=== PATIENT | male | born 1975 | race Caucasian/White ===

== ENCOUNTER 2016-10-26 22:28 | Observation (INO) ==
[2016-10-27 00:18] LABS: Basophils # 0.1 K/mcL (0.0-0.2); Basophils % 0.6 %; Eosinophils # 0.1 K/mcL (0.0-0.6); Eosinophils % 0.9 %; Hematocrit 42.6 % (37.5-50.1); Hemoglobin 14.9 g/dL (12.9-16.9); Immature Granulocytes % 0.4 % (0-4); Lymphocytes % 38.3 %; Mean Corpuscular Hemoglobin 29.6 pg (28.0-33.3); Mean Corpuscular Volume 84.7 fL (83.0-100.0); Monocytes # 0.5 K/mcL (0.0-1.3); Monocytes % 5.8 %; Neutrophils # 4.2 K/mcL (1.6-8.9); Platelet Count 289 K/mcL (140-400); Red Blood Count 5.03 M/mcL (4.19-5.50); Red Cell Distribution Width 13.5 % (11.5-14.5)
[2016-10-27 00:22] LABS: Bilirubin,Urine Negative (Negative); Blood,Urine Negative (Negative); Clarity,Urine Clear (Clear); Color,Urine Yellow (Yellow); Glucose,Urine (UA) Normal (Normal); Ketones,Urine Negative (Negative); Leukocyte Esterase,Urine Negative (Negative); Nitrite,Urine Negative (Negative); Protein,Urine Negative (Neg-Trace); Specific Gravity,Urine 1.007 (1.010-1.025); Urobilinogen,Urine Normal (Normal)
[2016-10-27 00:26] LABS: BUN/Creatinine Ratio 7 (6-26); Blood Urea Nitrogen 7 mg/dL (8-26); Calcium 8.9 mg/dL (8.6-10.8); Carbon Dioxide 23 mEq/L (19-29); Chloride 107 mEq/L (98-109); Glucose 98 mg/dL (70-99); Osmolality,Calculated 294 (280-300); Potassium 3.8 mEq/L (3.5-4.5); Sodium 143 mEq/L (136-145); eGFR For African Americans > 60 (> 60); eGFR For Non-African Americans > 60 (> 60)
[2016-10-27 00:46] LABS: Acetaminophen < 1.0 mcg/mL (10-30); Ethanol 306 mg/dL (0-10); Salicylate < 5.0 mg/dL (15-30)
[2016-10-27 00:57] LABS: Amphetamine Screen,Urine Negative ng/mL (Cutoff=1000); Barbiturate Screen,Urine Negative ng/mL (Cutoff=200); Benzodiazepines Screen,Urine Negative ng/mL (Cutoff=200); Cannabinoid Screen,Urine Negative ng/mL (Cutoff = 50); Cocaine Screen,Urine Negative ng/mL (Cutoff= 300); Opiate Screen,Urine Negative ng/mL (Cutoff=300); Phencyclidine Screen,Urine Negative ng/mL (Cutoff=25)
--- NOTE | 2016-10-27 03:23 | Emergency Department Note ---
Disposition Clinical Impression: Anxiety, Bipolar 1 disorder Alcohol intoxication Qualifiers: Qualified Code(s): F10.129 - Disposition: Admitted As Inpatient Condition: Fair Time of Disposition: : Psych HPI - General Chief Complaint: ED Psychiatric Symptoms Stated Complaint: bipolar, ETOH, pain in his soul Time Seen by Provider: 10/27/16 00:40 Nursing Notes Reviewed: Yes Vital Signs Reviewed: Yes - History of Present Illness HPI Narrative: Mr. Banks, 41-year-old male, presents from home via EMS for chief complaint of anxiety. Patient called the squad on himself as he was having panic attacks. Is a history of bipolar disorder and currently takes Klonopin 0.5 mg on an unknown schedule. He currently follows with a psychologist [place] and is able to get close follow-up appointments. Patient states he did have alcohol today was his first time he has had a drink in 3 months. He is concerned because he knows that his current medication regimen is not controlling his anxiety does not want to go back to alcohol abuse to supplement his medications. PMH: Bipolar ROS: Positive: Anxiety Negative: Suicidality, homicidality, depression, fever, chills, chest pains, palpitations, abdominal pains, difficulty with bowels or bladder, confusion, dizziness. - Related Data Home Medications Medication Instructions Recorded Confirmed Divalproex Sodium [Depakote] 250 mg PO 10/27/16 Lisinopril-HCTZ 10-12.5 [Prinzide DAILY 10/27/16 10-12.5] Simvastatin [Zocor] 80 mg PO DAILY 10/27/16 10/27/16 clonazePAM [Klonopin] 0.5 mg PO DAILY 10/27/16 10/27/16 Allergies Allergy/AdvReac Type Severity Reaction Status Date / Time acetaminophen [From Percocet] AdvReac Insomnia Verified 10/11/16 12:14 haloperidol [From Haldol] AdvReac Swelling Verified 10/11/16 12:14 of Lip/Tongue/Throat lurasidone [From Latuda] AdvReac Swelling Verified 10/11/16 12:14 of Lip/Tongue/Throat Oxycodone [From Percocet] AdvReac Insomnia Verified 10/11/16 12:14 ziprasidone [From Geodon] AdvReac Swelling Verified 10/11/16 12:14 of Lip/Tongue/Throat All systems ED: reviewed and negative except as stated. Past Medical History - Past Medical History Medical history: Reports: diabetes, hyperlipidemia, hypertension, other Surgical history: Reports: orthopedic, other (left shoulder surgery Dr. Brooks) Psychiatric history: Reports: anxiety, bipolar, depression, panic disorder, PTSD , other - Social History Smoking Status: Never smoker Smokeless Tobacco Status: Yes (chewing tobacco) Alcohol use: Reports: none Drug use: Reports: none Physical Exam Vital Signs Reviewed General: Patient is alert, oriented, and in no acute distress. HEENT: No facial asymmetry. Head is normocephalic and atraumatic. PERRLA, EOMI. trachea midline. Patient has a difficult to his mouth. Cardiovascular: Heart regular rate and rhythm without clicks, rubs, gallops, or murmurs. Respiratory: Symmetric chest rise with good respiratory effort. Bilateral breath sounds are clear without wheezing, crackles, or rhonchi. Abdomen: Bowel sounds present normoactive x-4 quadrants. Abdomen is soft, nondistended, and nontender. No organomegaly noted. Psych: Patient's affect is appropriate for situation. His speech is not rushed his thoughts are coherent and not disjointed. Course Course Narrative: Patient is not safe to go home given his history of bipolar for which he could be entering a manic phase as well as his currently poorly controlled anxiety which was severe enough to cause him to call the squad himself coupled with his inability to get appropriate follow-up for continued evaluation by a psychologist. He requires evaluation by [facility]; they will not see him until his blood alcohol level becomes below the legal limit. Given that his current blood alcohol level is 306, this will likely take 9-15 hours for him to metabolize down to the legal limit. 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 I did see the patient coming to the emergency department wearing a cowboy hat and carrying a guitar. Spoke with the patient agrees to admission. Spoke with Dr. Casas, the admitting hospitalist, who agrees to accept the patient to observation with one a evaluation once he is at the legal alcohol. Vital Signs Temperature 98.4 F 10/27/16 00:15 Pulse Rate 89 10/27/16 00:15 Respiratory Rate 16 10/27/16 00:15 Blood Pressure 135/71 10/27/16 00:15 O2 Sat by Pulse Oximetry 99 10/27/16 00:15 Temperature 97.8 F 10/27/16 05:08 Pulse Rate 112 10/27/16 05:08 Respiratory Rate 15 10/27/16 05:08 Blood Pressure 110/96 10/27/16 05:08 O2 Sat by Pulse Oximetry 94 10/27/16 04:45 Oxygen Delivery Oxygen Delivery Room Air Psych - Lab Data Result diagrams: 10/26/16 22:52 10/26/16 22:52 Lab Results 10/26/16 10/26/16 10/26/16 Range/Units 22:52 22:52 23:40 WBC 7.8 (4.3-11.1) K/mcL RBC 5.03 (4.19-5.50) M/mcL Hgb 14.9 (12.9-16.9) g/dL Hct 42.6 (37.5-50.1) % MCV 84.7 (83.0-100.0) fL MCH 29.6 (28.0-33.3) pg MCHC 35.0 (31.6-35.5) g/dL RDW 13.5 (11.5-14.5) % Plt Count 289 (140-400) K/mcL MPV 10.0 (9.4-12.4) fL Immature Gran % 0.4 (0-4) % Seg Neutrophils % 54.0 % Lymphocytes % 38.3 % Monocytes % 5.8 % Eosinophils % 0.9 % Basophils % 0.6 % Neutrophils # 4.2 (1.6-8.9) K/mcL Lymphocytes # 3.0 (0.6-4.6) K/mcL Monocytes # 0.5 (0.0-1.3) K/mcL Eosinophils # 0.1 (0.0-0.6) K/mcL Basophils # 0.1 (0.0-0.2) K/mcL Sodium 143 (136-145) mEq/L Potassium 3.8 (3.5-4.5) mEq/L Chloride 107 (98-109) mEq/L Carbon Dioxide 23 (19-29) mEq/L BUN 7 L (8-26) mg/dL Creatinine 1.00 (0.72-1.25) mg/dL Est GFR ( Amer) > 60 (> 60) Est GFR (Non-Af Amer) > 60 (> 60) BUN/Creatinine Ratio 7 (6-26) Glucose 98 (70-99) mg/dL Calculated Osmolality 294 (280-300) Calcium 8.9 (8.6-10.8) mg/dL Urine Color Yellow (Yellow) Urine Clarity Clear (Clear) Urine pH 6.0 (5.0-8.0) pH Units Ur Specific [place] 1.007 L (1.010-1.025) Urine Protein Negative (Neg-Trace) mg/dL Urine Glucose (UA) Normal (Normal) mg/dL Urine Ketones Negative (Negative) mg/dL Urine Blood Negative (Negative) Urine Nitrite Negative (Negative) Urine Bilirubin Negative (Negative) Urine Urobilinogen Normal (Normal) mg/dL Ur Leukocyte Esterase Negative (Negative) Salicylates < 5.0 L (15-30) mg/dL Urine Opiates Screen (Ckbzyc=860) ng/mL Acetaminophen < 1.0 L (10-30) mcg/mL Ur Barbiturates Screen (Baqgrj=159) ng/mL Ur Phencyclidine Scrn (Cutoff=25) ng/mL Ur Amphetamines Screen (Ygkeqi=5396) ng/mL U Benzodiazepines Scrn (Qoulqi=276) ng/mL Urine Cocaine Screen (Cutoff= 300) ng/mL U Marijuana (THC) Screen (Cutoff = 50) ng/mL Ethyl Alcohol 306 H (0-10) mg/dL 10/26/16 Range/Units 23:40 WBC (4.3-11.1) K/mcL RBC (4.19-5.50) M/mcL Hgb (12.9-16.9) g/dL Hct (37.5-50.1) % MCV (83.0-100.0) fL MCH (28.0-33.3) pg MCHC (31.6-35.5) g/dL RDW (11.5-14.5) % Plt Count (140-400) K/mcL MPV (9.4-12.4) fL Immature Gran % (0-4) % Seg Neutrophils % % Lymphocytes % % Monocytes % % Eosinophils % % Basophils % % Neutrophils # (1.6-8.9) K/mcL Lymphocytes # (0.6-4.6) K/mcL Monocytes # (0.0-1.3) K/mcL Eosinophils # (0.0-0.6) K/mcL Basophils # (0.0-0.2) K/mcL Sodium (136-145) mEq/L Potassium (3.5-4.5) mEq/L Chloride (98-109) mEq/L Carbon Dioxide (19-29) mEq/L BUN (8-26) mg/dL Creatinine (0.72-1.25) mg/dL Est GFR ( Amer) (> 60) Est GFR (Non-Af Amer) (> 60) BUN/Creatinine Ratio (6-26) Glucose (70-99) mg/dL Calculated Osmolality (280-300) Calcium (8.6-10.8) mg/dL Urine Color (Yellow) Urine Clarity (Clear) Urine pH (5.0-8.0) pH Units Ur Specific [place] (1.010-1.025) Urine Protein (Neg-Trace) mg/dL Urine Glucose (UA) (Normal) mg/dL Urine Ketones (Negative) mg/dL Urine Blood (Negative) Urine Nitrite (Negative) Urine Bilirubin (Negative) Urine Urobilinogen (Normal) mg/dL Ur Leukocyte Esterase (Negative) Salicylates (15-30) mg/dL Urine Opiates Screen Negative (Utaeue=407) ng/mL Acetaminophen (10-30) mcg/mL Ur Barbiturates Screen Negative (Ugtysn=607) ng/mL Ur Phencyclidine Scrn Negative (Cutoff=25) ng/mL Ur Amphetamines Screen Negative (Vqtipc=0854) ng/mL U Benzodiazepines Scrn Negative (Dygpes=257) ng/mL Urine Cocaine Screen Negative (Cutoff= 300) ng/mL U Marijuana (THC) Screen Negative (Cutoff = 50) ng/mL Ethyl Alcohol (0-10) mg/dL Psychiatric Medical Clearance - Medical Clearance Checklist Medical History: No Social History [place] defined Current Vitals: Last Vital Signs Temp 97.8 F 10/27/16 05:08 Pulse 112 10/27/16 05:08 Resp 15 10/27/16 05:08 BP 110/96 10/27/16 05:08 Pulse Ox 94 10/27/16 04:45 Psychiatric Lab Panel: Drug Levels and Toxicity 10/26/16 10/26/16 22:52 23:40 Urine Opiates Screen Negative Acetaminophen < 1.0 L Ur Barbiturates Screen Negative Ur Phencyclidine Scrn Negative Ur Amphetamines Screen Negative U Benzodiazepines Scrn Negative Urine Cocaine Screen Negative U Marijuana (THC) Screen Negative Ethyl Alcohol 306 H Abnormal Labs: Abnormal lab results BUN 7 mg/dL (8-26) L 10/26/16 22:52 Ur Specific [place] 1.007 (1.010-1.025) L 10/26/16 23:40 Salicylates < 5.0 mg/dL (15-30) L 10/26/16 22:52 Acetaminophen < 1.0 mcg/mL (10-30) L 10/26/16 22:52 Ethyl Alcohol 306 mg/dL (0-10) H 10/26/16 22:52 Attestation Statement - Attestation Attestation: I, Jaquan Neff MD, personally evaluated this patient and discussed their management with the resident physician. I reviewed the resident's note and agree with the documented findings, medical decision making, and plan of care. 41-year-old male presents to the emergency department with a complaint of anxiety and panic attacks. He has a history of bipolar disorder. He also has been drinking alcohol tonight. No suicidal or homicidal ideation. On examination patient is a well-developed well-nourished male in no acute distress. He is alert and oriented 3. He is cooperative. No cyanosis or diaphoresis. Breath sounds are clear and equal bilaterally. Heart regular rate and rhythm. Labs reviewed and unremarkable other than alcohol level of 306. Although the patient denies suicidal ideation he is very intoxicated and is having psychological issues. He does need psychiatric evaluation but cannot be evaluated until sober. Therefore the hospitalist, Dr. Casas, was consulted and accepted admission of the patient.
--- NOTE | 2016-10-27 04:19 | Internal Med History&Physical ---
Date of Encounter: 10/27/16 Time of Encounter: 04:17 Assessment and Plan (1) Alcohol intoxication Current visit: Yes Status: Acute Started drinking excessively after he was sober for 3 month. BAL 300. Will wait till < 80 and then transfer to psych. Qualifiers: Qualified Code(s): F10.129 - Alcohol abuse with intoxication, unspecified (2) Panic attack Current visit: Yes Status: Acute clonazepam PRN. He denies suicidal or homicidal ideation Internal Medicine - H&P: HPI Chief complaint: panic attack History of present illness: Mr. Banks is a 41 year old male with history of anxiety and bipolar disorder, present to the ED after a panic attack. Patient has been sober from alcohol for 3.5 months. Started drinking today. He had a panic attack. denied any chest pain , SOB. Denies any drug abuse or other coingestion. No suicidal or homicidal ideations. No hematemesis, melena or hematochezia Past Med Surg Social Fam HX - Past Medical History Medical history: diabetes, hyperlipidemia, hypertension, other Psychiatric history: anxiety, bipolar, depression, panic disorder, PTSD, other - Past Surgical History Surgical History: orthopedic, other (left shoulder surgery Dr. Brooks) - Social History Smoking Status: Never smoker Smokeless Tobacco Status: Yes (chewing tobacco) Alcohol use: none Drug use: none Internal Medicine - H&P: Meds Divalproex Sodium [Depakote] 250 mg PO 10/27/16 [History] Lisinopril-HCTZ 10-12.5 [Prinzide 10-12.5] DAILY 10/27/16 [History] Simvastatin [Zocor] 80 mg PO DAILY 10/27/16 [History] clonazePAM [Klonopin] 0.5 mg PO DAILY 10/27/16 [History] Allergies acetaminophen [From Percocet] Adverse Reaction (Verified 10/11/16 12:14) Insomnia haloperidol [From Haldol] Adverse Reaction (Verified 10/11/16 12:14) Swelling of Lip/Tongue/Throat lurasidone [From Latuda] Adverse Reaction (Verified 10/11/16 12:14) Swelling of Lip/Tongue/Throat Oxycodone [From Percocet] Adverse Reaction (Verified 10/11/16 12:14) Insomnia ziprasidone [From Geodon] Adverse Reaction (Verified 10/11/16 12:14) Swelling of Lip/Tongue/Throat All Systems PM: A 10-system review of systems was performed and is negative for pertinent findings except as documented above in the HPI. Review of systems: 10 point ROS is nehgative except for HPI - Constitutional Vitals: Temp Pulse Resp BP Pulse Ox 98.4 F 89 0 0/0 99 10/27/16 00:15 10/27/16 03:50 10/27/16 04:14 10/27/16 04:14 10/27/16 03:50 Exam: Gen.: patient is alert oriented times 3 not in distress. Cardiac: normal S1 S2 no additional sounds or murmurs chest: fair air entry. no active wheezing. No crackles or bronchial breathing. abdomen: soft nontender nondistended normal bowel sounds neuro: no focal deficit Internal Med - H&P Results - Labs CBC & Chem 7: 10/26/16 22:52 10/26/16 22:52
[2016-10-27] MEDS ORDERED: Famotidine 20 MG TABLET PO SCH (09:00)
[2016-10-27] MEDS ORDERED: 0.9 % Sodium Chloride 1,000 ML IVC SCH (09:30)
[2016-10-27 11:51] VITALS: BP 126/76
--- NOTE | 2016-10-27 14:56 | Consult Note ---
Date of Encounter: 10/27/16 Time of Encounter: 14:20 Assessment & Recommendation (1) Bipolar 1 disorder Current visit: Yes Status: Acute Assessment & Recommendation: Patient will be admitted to psychiatry for further evaluation and treatment after medical stabilization. Thank you for consultation. History of Present Illness Patient: new to practice Requesting Physician: Skylar Soto CNP Reason for consult: Alcohol intoxication and suicidal ideation History of present illness: Mr. Banks is a 41 year old male admitted to the hospital for treatment of alcohol intoxication and psychiatry was consulted regarding suicidal ideation and noncompliance with medication. On admission patient level was severe was 306. Patient had long history of psychiatric treatment for bipolar disorder and PTSD and alcohol dependence. He told me that he was hospitalized at [facility] ago. He is taking medication and follow-up up by an outpatient psychiatrist in [place]. CC: Skylar Soto CNP Past Med Surg Social Fam HX - Past Medical History Medical history: diabetes, hyperlipidemia, hypertension, other - Past Surgical History Surgical History: orthopedic, other (left shoulder surgery Dr. Brooks) - Social History Smoking Status: Never smoker Smokeless Tobacco Status: Yes (chewing tobacco) Alcohol use: none Drug use: none Medications & Allergies Betamethasone Dipropionate 1 appl TP BID PRN 10/27/16 [History] Betamethasone Valerate 1 appl TP BID PRN 10/27/16 [History] Calcipotriene 1 appl TP BID PRN 10/27/16 [History] Ciclopirox [Loprox] 1 appl TP 3XW PRN 10/27/16 [History] Divalproex (24 HR) [Depakote ER (24 HR)] 2,000 mg PO HS 10/27/16 [History] Gabapentin [Gralise] 300 mg PO TID 10/27/16 [History] Lisinopril-HCTZ 10-12.5 [Prinzide 10-12.5] 1 tab PO DAILY 10/27/16 [History] Simvastatin [Zocor] 20 mg PO HS 10/27/16 [History] clonazePAM [Klonopin] 0.5 mg PO BID 10/27/16 [History] Allergies acetaminophen [From Percocet] Adverse Reaction (Verified 10/11/16 12:14) Insomnia haloperidol [From Haldol] Adverse Reaction (Verified 10/11/16 12:14) Swelling of Lip/Tongue/Throat lurasidone [From Latuda] Adverse Reaction (Verified 10/11/16 12:14) Swelling of Lip/Tongue/Throat Oxycodone [From Percocet] Adverse Reaction (Verified 10/11/16 12:14) Insomnia ziprasidone [From Geodon] Adverse Reaction (Verified 10/11/16 12:14) Swelling of Lip/Tongue/Throat Mental Status Exam Patient orientation: Yes Person, Yes Time, Yes Place Level of alertness: Alert, Sedated Patient appearance: Appropriate, Unkempt, Disheveled Behavior: calm, cooperative, anxious, guarded Psychomotor activity: Slowed Eye contact: Fleeting Contact Mood description: Anxious, Labile Affect description: congruent with mood, labile, dysphoric Speech pattern: Normal rate, Normal rhythm, Normal tone Speech volume: Normal Thought process: Linear, Goal Oriented Thought content: Yes Suicidal ideation, No Homicidal ideation, No Overt delusions Perceptual disturbances: No Auditory hallucinations, No Visual hallucinations Attention span: Capable of Focused Attention Memory description: Grossly Intact Patient reliability: Reliable Historian Intelligence estimate: Average Judgment: Limited Insight: Partial Results - Vital Signs Vital signs: Temp Pulse Resp BP Pulse Ox 97.7 F 106 16 126/76 96 10/27/16 11:49 10/27/16 11:49 10/27/16 11:49 10/27/16 11:49 10/27/16 11:49 - Labs Labs: Laboratory Last Values WBC 7.8 K/mcL (4.3-11.1) 10/26/16 22:52 RBC 5.03 M/mcL (4.19-5.50) 10/26/16 22:52 Hgb 14.9 g/dL (12.9-16.9) 10/26/16 22:52 Hct 42.6 % (37.5-50.1) 10/26/16 22:52 MCV 84.7 fL (83.0-100.0) 10/26/16 22:52 MCH 29.6 pg (28.0-33.3) 10/26/16 22:52 MCHC 35.0 g/dL (31.6-35.5) 10/26/16 22:52 RDW 13.5 % (11.5-14.5) 10/26/16 22:52 Plt Count 289 K/mcL (140-400) 10/26/16 22:52 MPV 10.0 fL (9.4-12.4) 10/26/16 22:52 Immature Gran % 0.4 % (0-4) 10/26/16 22:52 Seg Neutrophils % 54.0 % 10/26/16 22:52 Lymphocytes % 38.3 % 10/26/16 22:52 Monocytes % 5.8 % 10/26/16 22:52 Eosinophils % 0.9 % 10/26/16 22:52 Basophils % 0.6 % 10/26/16 22:52 Neutrophils # 4.2 K/mcL (1.6-8.9) 10/26/16 22:52 Lymphocytes # 3.0 K/mcL (0.6-4.6) 10/26/16 22:52 Monocytes # 0.5 K/mcL (0.0-1.3) 10/26/16 22:52 Eosinophils # 0.1 K/mcL (0.0-0.6) 10/26/16 22:52 Basophils # 0.1 K/mcL (0.0-0.2) 10/26/16 22:52 Sodium 143 mEq/L (136-145) 10/26/16 22:52 Potassium 3.8 mEq/L (3.5-4.5) 10/26/16 22:52 Chloride 107 mEq/L (98-109) 10/26/16 22:52 Carbon Dioxide 23 mEq/L (19-29) 10/26/16 22:52 BUN 7 mg/dL (8-26) L 10/26/16 22:52 Creatinine 1.00 mg/dL (0.72-1.25) 10/26/16 22:52 Est GFR ( Amer) > 60 (> 60) 10/26/16 22:52 Est GFR (Non-Af Amer) > 60 (> 60) 10/26/16 22:52 BUN/Creatinine Ratio 7 (6-26) 10/26/16 22:52 Glucose 98 mg/dL (70-99) 10/26/16 22:52 Calculated Osmolality 294 (280-300) 10/26/16 22:52 Calcium 8.9 mg/dL (8.6-10.8) 10/26/16 22:52 Urine Color Yellow (Yellow) 10/26/16 23:40 Urine Clarity Clear (Clear) 10/26/16 23:40 Urine pH 6.0 pH Units (5.0-8.0) 10/26/16 23:40 Ur Specific [place] 1.007 (1.010-1.025) L 10/26/16 23:40 Urine Protein Negative mg/dL (Neg-Trace) 10/26/16 23:40 Urine Glucose (UA) Normal mg/dL (Normal) 10/26/16 23:40 Urine Ketones Negative mg/dL (Negative) 10/26/16 23:40 Urine Blood Negative (Negative) 10/26/16 23:40 Urine Nitrite Negative (Negative) 10/26/16 23:40 Urine Bilirubin Negative (Negative) 10/26/16 23:40 Urine Urobilinogen Normal mg/dL (Normal) 10/26/16 23:40 Ur Leukocyte Esterase Negative (Negative) 10/26/16 23:40 Salicylates < 5.0 mg/dL (15-30) L 10/26/16 22:52 Urine Opiates Screen Negative ng/mL (Xhypbz=974) 10/26/16 23:40 Acetaminophen < 1.0 mcg/mL (10-30) L 10/26/16 22:52 Ur Barbiturates Screen Negative ng/mL (Hbpejt=308) 10/26/16 23:40 Ur Phencyclidine Scrn Negative ng/mL (Cutoff=25) 10/26/16 23:40 Ur Amphetamines Screen Negative ng/mL (Qzwcue=9557) 10/26/16 23:40 U Benzodiazepines Scrn Negative ng/mL (Sedxlz=400) 10/26/16 23:40 Urine Cocaine Screen Negative ng/mL (Cutoff= 300) 10/26/16 23:40 U Marijuana (THC) Screen Negative ng/mL (Cutoff = 50) 10/26/16 23:40 Ethyl Alcohol 306 mg/dL (0-10) H 10/26/16 22:52 Consult Discharge Plan - Plan Referrals: NO,PCP [Primary Care Provider] -
[2016-10-27] MEDS ORDERED: Gabapentin 300 MG CAPSULE PO SCH (15:00)
--- NOTE | 2016-10-27 16:28 | Discharge Summary ---
Date of Encounter: 10/27/16 Time of Encounter: 10:35 - Discharge Diagnosis (1) Anxiety Priority: Primary Status: Chronic Comments: Patient reports long history of panic disorder, bipolar disorder, and PTSD. He said he began having anxiety and panic attack last night came to the emergency room. He says that he had not had any alcohol in about 119 days. Reports insomnia for at least 2 weeks, this could be contributing to his anxiety. Currently he is taking Klonopin and Depakote for bipolar and anxiety. After his emergency room visit he was pink slipped to 1A. Patient denies suicidal or homicidal ideations. Patient is going be admitted to mental health unit for continued evaluation. (2) Bipolar 1 disorder Priority: Secondary Status: Chronic Comments: Plan as above (3) Alcohol intoxication Priority: Secondary Status: Acute Comments: Patient states that he had been drinking for years, states that he had not had anything to drink for approximately 119 days. 2 days ago he began drinking at 4 PM and continued through the next day, yesterday. He reports that he needed to relax and he has been having insomnia for 2 weeks. He said that he did sleep better than he had in weeks. He says that he had a total of 32 beers, multiple shots of whiskey, and 5-7 mixed drinks. Blood alcohol was 306 on arrival, after hydration and overnight, Blood alcohol is 14. Patient is being admitted to mental health unit for continued evaluation. Qualifiers: Complication of substance-induced condition: uncomplicated Qualified Code(s ): F10.120 - Alcohol abuse with intoxication, uncomplicated - Discharge Medications Home Medications: Betamethasone Dipropionate 1 appl TP BID PRN 10/27/16 [History] Betamethasone Valerate 1 appl TP BID PRN 10/27/16 [History] Calcipotriene 1 appl TP BID PRN 10/27/16 [History] Ciclopirox [Loprox] 1 appl TP 3XW PRN 10/27/16 [History] Divalproex (24 HR) [Depakote ER (24 HR)] 2,000 mg PO HS 10/27/16 [History] Gabapentin [Gralise] 300 mg PO TID 10/27/16 [History] Lisinopril-HCTZ 10-12.5 [Prinzide 10-12.5] 1 tab PO DAILY 10/27/16 [History] Simvastatin [Zocor] 20 mg PO HS 10/27/16 [History] clonazePAM [Klonopin] 0.5 mg PO BID 10/27/16 [History] Allergies/Adverse Reactions: Allergies acetaminophen [From Percocet] Adverse Reaction (Verified 10/11/16 12:14) Insomnia haloperidol [From Haldol] Adverse Reaction (Verified 10/11/16 12:14) Swelling of Lip/Tongue/Throat lurasidone [From Latuda] Adverse Reaction (Verified 10/11/16 12:14) Swelling of Lip/Tongue/Throat Oxycodone [From Percocet] Adverse Reaction (Verified 10/11/16 12:14) Insomnia ziprasidone [From Geodon] Adverse Reaction (Verified 10/11/16 12:14) Swelling of Lip/Tongue/Throat Date of admission: 10/27/16 03:49 Primary care physician: PCP NO Consults: 10/27/16 09:29 Consult to Psychiatry [CONS] Stat Consulting Provider: Psychiatry Gladys Reason for Consult: Pt was pink slipped by ED to . Call Completed: No 10/27/16 13:08 Consult to Fountain Worker [CONS] Routine Reason for SW Consult: patient is pink slipped Discharging clinician: Skylar Soto Anticipated date of discharge: 10/27/16 - Patient Status Disposition: Transfer Psychiatric Hosp Condition: Good Functional capacity at discharge: independent ambulation Overall status at discharge: patient is back to baseline - Discharge Instructions Follow Up With: NO,PCP [Primary Care Provider] - Additional Instructions: Patient stable for discharge to . - Diet and Activity Activity: resume usual activities as tolerated Diet: advance to your usual diet Interval History: Mr. Banks is a 41-year-old male with medical history of alcoholism, panic disorder, PTSD, and bipolar disorder. He presented to the emergency department last night with panic attack and anxiety after drinking. He says that he had not had anything to drink for about 119 days. He reported insomnia for the last 2 weeks and says that he needed to relax. He began drinking at 4 PM 2 days ago and slept well that night. He continued into the next day, yesterday. He says he had a total of 32 beers, multiple shots of whiskey, and 5-7 mixed drinks. Blood alcohol level was over 300 on arrival. After IV hydration and observation, blood alcohol level is 14. He did have a sitter during his stay on the unit. He denied suicidal or homicidal ideations. He said he did feel helpless and hopeless, however he said he did not feel as if he would be better off . He denies recent change in appetite. He has had change in sleep pattern. He answers questions appropriately and fully and makes good eye contact. Is alert and interactive. Vital signs have been stable, labs are within normal limits. Patient is appropriate for discharge will be going to for continued evaluation. Hospital course: Mr. Banks is a 41 year old male - Time Spent with Patient Total time spent providing and/or coordinating discharge services: Less than 30 minutes - Constitutional Vitals: Temp Pulse Resp BP Pulse Ox 97.7 F 106 16 126/76 96 10/27/16 11:49 10/27/16 11:49 10/27/16 11:49 10/27/16 11:49 10/27/16 11:49 General appearance: Present: A&O X 3, pleasant, answers questions appropriately - Head Head exam: Present: normal inspection - Eye Eye exam: Present: normal appearance, nystagmus, conjuntiva pink - ENT ENT exam: Present: mucous membranes moist, normal exam, normal external ear exam - Neck Neck exam general surgery: Present: normal inspection. Absent: lymphadenopathy , tenderness - Respiratory Respiratory exam: Present: CTAB. Absent: decreased breath sounds, respiratory distress, rhonchi, wheezes - Cardiovascular Cardiovascular exam: Present: RRR, +S1, +S2. Absent: diastolic murmur, systolic murmur - Extremities Exam Extremities exam: Present: warm, radial pulses palpable and symetrical. Absent : pedal edema, tenderness - Neurological Exam Neurological exam: Present: alert, oriented X3, no focal deficits, strengths equal and symetr throughout. Absent: facial droop, speech deficit - Psychiatric Psychiatric exam: Present: flat affect, normal affect, normal mood. Absent: anxious, depressed, homicidal ideation, suicidal ideation
[2016-10-27] MEDS ORDERED: clonazePAM 0.5 MG TABLET PO SCH (21:00)
[2016-10-27] MEDS ORDERED: Divalproex (24 HR) 500 MG TABLET PO SCH (21:00)
== END 2016-10-27 17:33 ==
LOC: 3BNU 22:28 → EMEROO 22:28 → 3BNU 10-27 04:16
PROVIDERS: ADMIT Hospitalist; ATTEND Registered Nurse

== ENCOUNTER 2016-10-27 17:40 | Inpatient (IN) ==
[2016-10-27] MEDS ORDERED: CALCIPOTRIENE TP PRN (18:33)
[2016-10-27] MEDS ORDERED: CICLOPIROX APPL TP PRN (18:33)
[2016-10-27] MEDS ORDERED: FluocinoNIDE 0.05% CRM 15 GM TUBE TP PRN (18:33)
[2016-10-27] MEDS ORDERED: Ibuprofen 400 MG TABLET PO PRN (18:34)
[2016-10-27] MEDS ORDERED: MOM Conc 10 ML UD.LIQ PO PRN (18:34)
[2016-10-27] MEDS ORDERED: Mag Hydrox/Al Hydrox/Simeth 30 ML UDC PO PRN (18:34)
[2016-10-27] MEDS ORDERED: *HR* LORazepam 2 MG/ML VIAL IM PRN (18:34)
[2016-10-27] MEDS ORDERED: hydrOXYzine pamoate 25 MG CAPSULE PO PRN (18:34)
[2016-10-27] MEDS ORDERED: *HR* LORazepam 1 MG TABLET PO PRN (18:34)
[2016-10-27] MEDS ORDERED: Ziprasidone injection 20 MG/ML VIAL IM PRN (19:50)
[2016-10-27] MEDS ORDERED: Ziprasidone 20 MG CAPSULE PO PRN (19:50)
[2016-10-27] MEDS: Nicotine 2 MG GUM BC PRN (20:27)
[2016-10-27] MEDS: traZODone 50 MG TABLET PO PRN (20:28)
[2016-10-27] MEDS: Divalproex (24 HR) 500 MG TABLET PO SCH (20:28)
[2016-10-27] MEDS: Gabapentin 300 MG CAPSULE PO SCH (20:28)
[2016-10-27] MEDS: clonazePAM 0.5 MG TABLET PO SCH (20:28)
[2016-10-28] MEDS: Nicotine 2 MG GUM BC PRN ×5 (02:00→19:32)
[2016-10-28] MEDS: traZODone 50 MG TABLET PO PRN ×2 (02:14→20:56)
[2016-10-28] MEDS: Gabapentin 300 MG CAPSULE PO SCH ×3 (09:22→20:57)
[2016-10-28] MEDS: clonazePAM 0.5 MG TABLET PO SCH ×2 (09:22→20:56)
--- NOTE | 2016-10-28 11:23 | Psychiatry History & Physical ---
Date of Encounter: 10/28/16 Time of Encounter: 11:00 History of Present Illness Patient Stated Chief Complaint: Manic episodes and alcohol intoxication Medicare Admission Attestation: For traditional Medicare patients the provided hospital inpatient services are reasonable and necessary and in the case of services not specified as inpatient -only under 42 CFR 419.22 (n), that they are appropriately provided as inpatient services in accordance 42 CFR 412.3. For Critical Access Hospital the patient may reasonably be expected to be discharged or transferred to a hospital within 96 hours after admission to the Critical Access Hospital. Admitted From: Intrahospital Transfer (3B) History of Present Illness: Mr. Banks is a 41 year old male admitted from the medical service for stabilization of bipolar disorder with manic episode and alcohol intoxication. Patient was admitted to the hospital with alcohol intoxication and decompensation of bipolar disorder and manic symptoms. He was seen in psychiatric consultation and recommended to be admitted to psychiatry for further treatments. Please see psychiatric consultation in the system. Patient has a long history of bipolar disorder and PTSD according dependence and has been under care off a psychiatrist as outpatient in addition to history of hospitalization most recently was at the [facility] 2 years ago. Patient reports relapsing into drinking after 3 months of sobriety and he was concerned about his manic episodes. Currently patient is showing improvements and his medication are restarted and we will obtain Depakote level evaluated his dosage. Patient also was advised to use less and less benzodiazepine for anxiety. Past Med Surg Social Fam HX - Past Medical History Medical history: diabetes, hyperlipidemia, hypertension, other - Past Psychiatric History Psychiatric history: Reports: bipolar, panic disorder, PTSD, previous psychiatric hospitalization Past psychiatric history details: Recent hospitalization in [facility] 2 years ago. - Past Surgical History Surgical History: orthopedic, other - Social History Smoking Status: Never smoker Smokeless Tobacco Status: Yes (chewing tobacco) Alcohol use: none Drug use: none Medications & Allergies Betamethasone Dipropionate 1 appl TP BID PRN 10/27/16 [History] Betamethasone Valerate 1 appl TP BID PRN 10/27/16 [History] Calcipotriene 1 appl TP BID PRN 10/27/16 [History] Ciclopirox [Loprox] 1 appl TP 3XW PRN 10/27/16 [History] Divalproex (24 HR) [Depakote ER (24 HR)] 2,000 mg PO HS 10/27/16 [History] Gabapentin [Gralise] 300 mg PO TID 10/27/16 [History] Lisinopril-HCTZ 10-12.5 [Prinzide 10-12.5] 1 tab PO DAILY 10/27/16 [History] Simvastatin [Zocor] 20 mg PO HS 10/27/16 [History] clonazePAM [Klonopin] 0.5 mg PO BID 10/27/16 [History] Allergies acetaminophen [From Percocet] Adverse Reaction (Verified 10/11/16 12:14) Insomnia haloperidol [From Haldol] Adverse Reaction (Verified 10/11/16 12:14) Swelling of Lip/Tongue/Throat lurasidone [From Latuda] Adverse Reaction (Verified 10/11/16 12:14) Swelling of Lip/Tongue/Throat Oxycodone [From Percocet] Adverse Reaction (Verified 10/11/16 12:14) Insomnia ziprasidone [From Geodon] Adverse Reaction (Verified 10/11/16 12:14) Swelling of Lip/Tongue/Throat Review of Systems Psychiatric: Reports: suicidal ideation, mood swings, panic attacks Mental Status Exam Patient orientation: Yes Person, Yes Time, Yes Place Level of alertness: Alert Patient appearance: Appropriate, Well Groomed Behavior: cooperative, anxious, talkative Psychomotor activity: Normal Eye contact: Intense Contact Mood description: Anxious, Labile Affect description: congruent with mood, labile, anxious Speech pattern: Normal rate, Normal rhythm, Normal tone, Pressured Speech volume: Normal Thought process: Linear, Goal Oriented, Circumstantial, Racing Thought content: No Suicidal ideation, No Homicidal ideation, No Overt delusions Perceptual disturbances: No Auditory hallucinations, No Visual hallucinations Attention span: Capable of Focused Attention Memory description: Grossly Intact Patient reliability: Reliable Historian Intelligence estimate: Average Judgment: Limited Insight: Partial Results - Vital Signs Vital signs: Temp Pulse Resp BP 97.5 F L 71 16 132/88 10/28/16 09:00 10/28/16 09:00 10/28/16 09:00 10/28/16 09:00 Assessment and Plan (1) Bipolar 1 disorder Current visit: No Status: Chronic Plan: Admit inpatient for safety and stabilization, Close observation, Suicide Precautions per unit protocol, Encourage participation in unit milieu, Group Therapy, Monitor sleep, Monitor appetite Additional Plan: Will check Depakote level to adjust the dose. Risks, benefits, side effects, alternatives discussed w/pt: Yes Patient agreeable to treatment: Yes Estimated Length of Stay (Days): 3 (2) Alcohol dependence Current visit: Yes Status: Acute Plan: Admit inpatient for safety and stabilization, Close observation, Suicide Precautions per unit protocol, Encourage participation in unit milieu, Group Therapy, Monitor sleep, Monitor appetite Qualifiers: Complication of substance-induced condition: with delirium Qualified Code(s ): F10.231 - Alcohol dependence with withdrawal delirium
[2016-10-28] MEDS ORDERED: CALCIPOTRIENE TP PRN (12:31)
[2016-10-28] MEDS: Divalproex (24 HR) 500 MG TABLET PO SCH (20:57)
[2016-10-29] MEDS: Nicotine 2 MG GUM BC PRN ×2 (05:23→08:33)
[2016-10-29] MEDS: Gabapentin 300 MG CAPSULE PO SCH (08:33)
[2016-10-29] MEDS: clonazePAM 0.5 MG TABLET PO SCH (08:33)
[2016-10-29 08:38] VITALS: BP 115/79
[2016-10-29] MEDS ORDERED: FluocinoNIDE 0.05% CRM 15 GM TUBE TP SCH (09:00)
[2016-10-29] MEDS ORDERED: Clotrimazole 1% CRM 15 GM TUBE TP SCH (09:00)
--- NOTE | 2016-10-29 12:25 | Discharge Summary ---
Date of Encounter: 10/29/16 Time of Encounter: 11:35 Diagnosis - Discharge Diagnosis (1) Bipolar 1 disorder Status: Chronic (2) Anxiety Status: Chronic (3) Alcohol intoxication Status: Acute Qualifiers: Complication of substance-induced condition: uncomplicated Qualified Code(s ): F10.120 - Alcohol abuse with intoxication, uncomplicated (4) Alcohol dependence Status: Chronic Qualifiers: Substance use status: with intoxication Complication of substance-induced condition: with delirium Qualified Code(s): F10.221 - Alcohol dependence with intoxication delirium Medications - Discharge Medications Betamethasone Dipropionate 1 appl TP BID PRN 10/27/16 [History] Betamethasone Valerate 1 appl TP BID PRN 10/27/16 [History] Calcipotriene 1 appl TP BID PRN 10/27/16 [History] Ciclopirox [Loprox] 1 appl TP 3XW PRN 10/27/16 [History] Divalproex (24 HR) [Depakote ER (24 HR)] 2,000 mg PO HS 10/27/16 [History] Gabapentin [Gralise] 300 mg PO TID 10/27/16 [History] Lisinopril-HCTZ 10-12.5 [Prinzide 10-12.5] 1 tab PO DAILY 10/27/16 [History] Simvastatin [Zocor] 20 mg PO HS 10/27/16 [History] Patient Taking Own Medication 0 each TP DAILY PRN #0 each 10/29/16 [Rx] Allergies acetaminophen [From Percocet] Adverse Reaction (Verified 10/11/16 12:14) Insomnia haloperidol [From Haldol] Adverse Reaction (Verified 10/11/16 12:14) Swelling of Lip/Tongue/Throat lurasidone [From Latuda] Adverse Reaction (Verified 10/11/16 12:14) Swelling of Lip/Tongue/Throat Oxycodone [From Percocet] Adverse Reaction (Verified 10/11/16 12:14) Insomnia ziprasidone [From Geodon] Adverse Reaction (Verified 10/11/16 12:14) Swelling of Lip/Tongue/Throat Results Procedures and tests throughout hospitalization: Completed Lab Orders Category Date Time Status Valproate Routine Lab 10/28/16 11:29 Completed Provider Date of admission: 10/27/16 17:40 Primary care physician: PCP NO Discharging clinician: Judith Bates Assessment and Plan - Patient/Caregiver Discharge Instructions Activity: resume usual activities as tolerated Diet: regular diet - Follow up Plan Follow up with: Winston Vargas [facility] [Outside] - 11/10/16 10:45 am (The above appointment is with Sara for therapy. You will also see Belia Mckeon on 12/14/2016 at 2:00pm. Office staff will call you as soon as they get a cancellation to get you in to see Belia sooner.) Overall status at discharge: Stable Disposition: Home, Self-Care Hospital Course Hospital course: Mr. Banks is a 41 year old male with a history of bipolar disorder type I, anxiety, alcohol dependence who presented to the hospital intoxicated and was admitted to the medical floor initially with confusion and alcohol intoxication and withdrawal. Patient initially called EMS because of the panic attack but his alcohol level was 306 upon arrival to the hospital. Again patient was on the medical floor initially and was evaluated by psychiatry. At that time patient was exhibiting signs of irritability and mood swings and anxiety. 1A for psychiatric stabilization. Patient was incorporated into the therapeutic milieu and offer group and individual as well as recreational therapies. He was also offered psychoeducational materials and supportive therapy. He was placed on suicide precautions and close observation per unit protocol. Patient reports that he was initially confused and overwhelmed when he arrived at the hospital. He admits this was related to his alcohol consumption. Depakote level was checked in the hospital and found to be within normal range. Patient feels for the most part his meds are helping. He does verbalize an understanding that alcohol will continue to destabilize him even when he is taking meds. At this time he has no desire to quit. I did educate the patient that he should not be taking clonazepam and drinking because it can cause increased risk of respiratory depression and . Patient understands this. He denies any suicidal or homicidal ideation, intent, or plan. He feels better now and states that he would like to go home to his dog. Patient's mother was called who feels like he is back to normal and she is willing to come pick him up. He does have follow-up with psychiatry in [place]. Patient states he will keep his follow-up appointments. He is discharged in stable condition. Does patient wish to continue nicotine replacement upon disc: No - Time Spent with Patient Total time spent providing and/or coordinating discharge services: Greater than 30 minutes Quality - Multiple Antipsychotics Patient discharged on 2 or more antipsychotic medications: No Procedures - Procedures Procedures: Medication Management, Crisis Stabilization, Supportive Therapy, Group Therapy, Psychoeducational Therapy Mental Status Exam - Mental Status Exam Patient orientation: Yes Person, Yes Time, Yes Place Level of alertness: Alert Patient appearance: Appropriate, Well Groomed Behavior: calm, cooperative Psychomotor activity: Normal Eye contact: Maintains Eye Contact Mood description: Euthymic/stable Affect description: congruent with mood, full range Speech pattern: Normal rate, Normal rhythm, Normal tone Speech Volume: Normal Thought process: Linear, Goal Oriented Thought Content: No Suicidal ideation, No Homicidal ideation, No Overt delusions Perceptual Disturbances: No Auditory hallucinations, No Visual hallucinations Judgment: Limited Insight: Partial
== END 2016-10-29 13:40 | disposition home or self-care (01) | DRG 753 ==
LOC: 1ANU 17:40 → SUATTDRO 17:40
PROVIDERS: ADMIT Psychiatry & Neurology Psychiatry; ATTEND Student in an Organized Health Care Education/Training Program

== ENCOUNTER 2017-07-19 09:01 | Inpatient (IN) ==
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
[2017-07-19 09:40] LABS: Basophils # 0.1 K/mcL (0.0-0.2); Basophils % 0.6 %; Eosinophils # 0.2 K/mcL (0.0-0.6); Hematocrit 46.1 % (37.5-50.1); Hemoglobin 15.8 g/dL (12.9-16.9); Immature Granulocytes % 1.4 % (0-4); Lymphocytes # 2.8 K/mcL (0.6-4.6); Lymphocytes % 32.6 %; Mean Corpuscular HGB Conc 34.3 g/dL (31.6-35.5); Mean Corpuscular Hemoglobin 31.3 pg (28.0-33.3); Mean Corpuscular Volume 91.5 fL (83.0-100.0); Mean Platelet Volume 9.8 fL (9.4-12.4); Monocytes # 0.7 K/mcL (0.0-1.3); Monocytes % 8.1 %; Neutrophils # 4.8 K/mcL (1.6-8.9); Platelet Count 211 K/mcL (140-400); Red Blood Count 5.04 M/mcL (4.19-5.50); Red Cell Distribution Width 14.6 % (11.5-14.5); Segmented Neutrophils % 55.3 %
[2017-07-19 09:43] LABS: Bilirubin,Urine Negative (Negative); Blood,Urine Negative (Negative); Clarity,Urine Clear (Clear); Color,Urine Yellow (Yellow); Glucose,Urine (UA) Normal (Normal); Ketones,Urine Negative (Negative); Leukocyte Esterase,Urine Negative (Negative); Nitrite,Urine Negative (Negative); Protein,Urine Negative (Neg-Trace); Specific Gravity,Urine 1.019 (1.010-1.025); Urobilinogen,Urine Normal (Normal)
[2017-07-19 09:45] LABS: Amphetamine Screen,Urine Negative ng/mL (Cutoff=1000); Barbiturate Screen,Urine Negative ng/mL (Cutoff=200); Benzodiazepines Screen,Urine Positive ng/mL (Cutoff=200); Cannabinoid Screen,Urine Positive ng/mL (Cutoff = 50); Cocaine Screen,Urine Negative ng/mL (Cutoff= 300); Opiate Screen,Urine Negative ng/mL (Cutoff=300); Phencyclidine Screen,Urine Negative ng/mL (Cutoff=25)
[2017-07-19 09:54] LABS: Acetaminophen < 1.0 mcg/mL (10-30); BUN/Creatinine Ratio 14 (6-26); Blood Urea Nitrogen 15 mg/dL (6-20); Calcium 9.3 mg/dL (8.6-10.3); Carbon Dioxide 24 mEq/L (23-29); Chloride 107 mEq/L (98-107); Ethanol < 10 mg/dL (0-10); Glucose 123 mg/dL (70-105); Osmolality,Calculated 288 (280-300); Potassium 3.7 mEq/L (3.5-5.1); Salicylate < 5.0 mg/dL (15.0-30.0); Sodium 138 mEq/L (136-145); eGFR For African Americans > 60 (> 60); eGFR For Non-African Americans > 60 (> 60)
[2017-07-19] MEDS ORDERED: Ibuprofen 600 MG TABLET PO ONE (09:56)
[2017-07-19 12:28] LABS: Valproate 25 mcg/mL (50-100)
[2017-07-19] MEDS ORDERED: Acetaminophen 325 MG TABLET PO PRN (12:54)
[2017-07-19] MEDS ORDERED: *HR* LORazepam 1 MG TABLET PO PRN (12:54)
[2017-07-19] MEDS ORDERED: MOM Conc 10 ML UD.LIQ PO PRN (12:54)
[2017-07-19] MEDS ORDERED: *HR* LORazepam 2 MG/ML VIAL IM PRN (12:54)
[2017-07-19] MEDS ORDERED: Haloperidol Lactate 5 MG/ML VIAL IM PRN (12:54)
[2017-07-19] MEDS ORDERED: Mag Hydrox/Al Hydrox/Simeth 30 ML UDC PO PRN (12:54)
[2017-07-19] MEDS: Lisinopril 20 MG TABLET PO SCH (15:49)
[2017-07-19] MEDS: Nicotine 2 MG GUM BC PRN ×2 (15:49→18:41)
[2017-07-19] MEDS: OLANZapine 10 MG TAB.RAPDIS PO PRN (18:00)
[2017-07-19] MEDS: Divalproex (12 HR) 500 MG TABLET PO SCH (20:46)
[2017-07-19] MEDS: traZODone 50 MG TABLET PO PRN (20:46)
[2017-07-20] MEDS: Lisinopril 20 MG TABLET PO SCH (08:29)
[2017-07-20] MEDS: hydrOXYzine pamoate 25 MG CAPSULE PO PRN ×2 (08:47→22:09)
[2017-07-20] MEDS: Nicotine 2 MG GUM BC PRN ×4 (08:47→22:14)
[2017-07-20] MEDS: Ibuprofen 400 MG TABLET PO PRN (08:47)
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
[2017-07-20] MEDS: clonazePAM 0.5 MG TABLET PO PRN ×2 (13:03→22:13)
[2017-07-20] MEDS: traZODone 50 MG TABLET PO PRN (22:10)
[2017-07-20] MEDS: Divalproex (12 HR) 500 MG TABLET PO SCH (22:13)
[2017-07-20] MEDS: OLANZapine 10 MG TAB.RAPDIS PO PRN (22:14)
[2017-07-21] MEDS: Nicotine 2 MG GUM BC PRN ×5 (04:27→21:22)
[2017-07-21] MEDS: Lisinopril 20 MG TABLET PO SCH (09:09)
[2017-07-21] MEDS: clonazePAM 0.5 MG TABLET PO PRN ×2 (09:11→14:00)
--- NOTE | 2017-07-21 10:48 | Psychiatry Progress Note ---
Date of Encounter: 07/21/17 Time of Encounter: 10:45 Subjective Interval history: Patient would like to go home today. He agrees to go on Invega Sustenna he would like a lower dose this might be 156 mg IM. 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 He says he weighs about 250 pounds now but is not cut back on the candy. His whereabouts dogs and the safety of his apartment is most most come visit him today. He follows up at [facility] I will contact Dr. Chavez Review of Systems Psychiatric: Reports: difficulty concentrating, mood swings, panic attacks Objective: Exam Patient orientation: Yes Person, Yes Time, Yes Place Level of alertness: Alert Patient appearance: Appropriate Behavior: restless, distractible, impulsive Psychomotor activity: Increased Eye contact: Maintains Eye Contact Mood description: Expansive Affect description: congruent with mood Speech pattern: Normal tone, Appropriate Speech volume: Loud Thought process: Tangential, Flight of Ideas Thought content: Yes Ideas of reference, Yes Paranoid delusion, Yes Grandiose delusion, Yes Obsessive thoughts Judgment: Limited Insight: Minimal Results - Vital Signs Vital Signs: Temp Pulse Resp BP Pulse Ox 98.2 F 91 18 129/92 97 07/21/17 09:00 07/21/17 09:00 07/21/17 09:00 07/21/17 09:00 07/19/17 09:04 Assessment and Plan (1) Bipolar disorder, current episode manic severe with psychotic features Current visit: Yes Status: Acute Plan: Continue hospitalization, Close observation, Encourage participation in unit milieu, Monitor sleep Risks, benefits, side effects, alternatives discussed w/pt: Yes Patient agreeable to treatment: Yes (2) Non compliance w medication regimen Current visit: Yes Status: Acute Plan: Continue hospitalization, Encourage participation in unit milieu Additional Plan: Invega susternna 156 mg IM q 28 days Risks, benefits, side effects, alternatives discussed w/pt: Yes Patient agreeable to treatment: Yes (3) Essential (primary) hypertension Current visit: Yes Status: Chronic Plan: Continue hospitalization, Close observation, Monitor appetite Risks, benefits, side effects, alternatives discussed w/pt: Yes Patient agreeable to treatment: Yes Consult Discharge Plan - Plan Referrals: NONE,PCP [Primary Care Provider] -
[2017-07-21] MEDS: Saline Nasal Spray 44 ML BOTTLE NS PRN (11:03)
[2017-07-21] MEDS: hydrOXYzine pamoate 25 MG CAPSULE PO PRN ×2 (12:12→21:22)
[2017-07-21] MEDS: Divalproex (12 HR) 500 MG TABLET PO SCH (21:21)
[2017-07-21] MEDS: OLANZapine 10 MG TAB.RAPDIS PO PRN (21:22)
[2017-07-21] MEDS: traZODone 50 MG TABLET PO PRN (22:43)
[2017-07-22] MEDS: Nicotine 2 MG GUM BC PRN ×5 (03:13→20:57)
[2017-07-22] MEDS: Lisinopril 20 MG TABLET PO SCH (08:34)
--- NOTE | 2017-07-22 10:45 | Psychiatry Progress Note ---
Date of Encounter: 07/22/17 Time of Encounter: 10:43 Subjective Interval history: Client is showing improvement on medication. However, still labile today. Angry to tearful to laughing. Thoughts are more organized but still has delusional thinking. Delusions may be present at baseline. Denies SI/HI. Suspect he will be ready to go early next week if housing is secured. Review of Systems Constitutional: Denies: fever, chills, weakness, weight change Eyes: Denies: eye pain, vision change Ears, Nose, Throat: Denies: ear pain, throat pain, dental pain, hearing loss, congestion Cardiovascular: Denies: chest pain, palpitations, dyspnea on exertion Respiratory: Denies: cough, dyspnea, wheezes Gastrointestinal: Denies: abdominal pain, nausea, vomiting, diarrhea, constipation Musculoskeletal: Denies: joint swelling, joint pain Neurological: Denies: headache, weakness, numbness, memory loss Psychiatric: Reports: difficulty concentrating, mood swings, panic attacks Objective: Exam Patient orientation: Yes Person, Yes Time, Yes Place Level of alertness: Alert Patient appearance: Appropriate Behavior: tearful Psychomotor activity: Normal Eye contact: Maintains Eye Contact Mood description: Irritable Affect description: congruent with mood Speech pattern: Normal rate, Normal rhythm, Normal tone Speech volume: Normal Thought process: Linear Thought content: No Suicidal ideation, No Homicidal ideation, Yes Overt delusions, Yes Restorationism delusion, Yes Grandiose delusion Perceptual disturbances: No Auditory hallucinations, No Visual hallucinations Judgment: Limited Insight: Minimal Results - Vital Signs Vital Signs: Temp Pulse Resp BP Pulse Ox 97.4 F L 103 16 134/88 99 07/22/17 09:45 07/22/17 09:45 07/22/17 09:45 07/21/17 20:12 07/21/17 20:12 Assessment and Plan (1) Bipolar disorder, current episode manic severe with psychotic features Current visit: Yes Status: Acute Plan: Continue hospitalization, Close observation, Suicide Precautions per unit protocol, Encourage participation in unit milieu, Group Therapy, Monitor sleep, Monitor appetite Risks, benefits, side effects, alternatives discussed w/pt: Yes Patient agreeable to treatment: Yes (2) Non compliance w medication regimen Current visit: Yes Status: Acute Plan: Continue hospitalization, Close observation, Suicide Precautions per unit protocol, Encourage participation in unit milieu, Group Therapy, Monitor sleep, Monitor appetite Risks, benefits, side effects, alternatives discussed w/pt: Yes Patient agreeable to treatment: Yes Consult Discharge Plan - Plan Additional Instructions: Dr. Villagran, psychiatrist, recommending initiation of Invega Sustenna 156mg as an outpatient to assist with medication compliance and improved stability. Referrals: [facility] [Outside] - 07/31/17 2:00 pm (The above appointment is with [facility] for outpatient counseling services. You will also see Dr. Chavez for psychiatric assessment and medication management services on 2017 at 7:00 PM.)
[2017-07-22] MEDS: Saline Nasal Spray 44 ML BOTTLE NS PRN (10:56)
[2017-07-22] MEDS: clonazePAM 0.5 MG TABLET PO PRN ×2 (12:40→20:57)
[2017-07-22] MEDS: traZODone 50 MG TABLET PO PRN (20:57)
[2017-07-22] MEDS: Divalproex (12 HR) 500 MG TABLET PO SCH (20:57)
[2017-07-23] MEDS: OLANZapine 10 MG TAB.RAPDIS PO PRN ×2 (01:41→21:13)
[2017-07-23] MEDS: Ibuprofen 400 MG TABLET PO PRN (02:31)
[2017-07-23] MEDS: Nicotine 2 MG GUM BC PRN ×6 (03:19→21:40)
[2017-07-23] MEDS: Lisinopril 20 MG TABLET PO SCH (08:53)
--- NOTE | 2017-07-23 12:26 | Psychiatry Progress Note ---
Date of Encounter: 07/23/17 Time of Encounter: 12:20 Subjective Interval history: Looking better. Less labile. Able to talk about his mother without getting angry. Not blaming others for admission. Less religiously preoccupied. Worried staff will not discharge him because his Psychiatrist is on paternity leave. Discussed how this would not keep him in the hospital. Will likely be ready for discharge tomorrow. Review of Systems Constitutional: Denies: fever, chills, weakness, weight change Eyes: Denies: eye pain, vision change Ears, Nose, Throat: Denies: ear pain, throat pain, dental pain, hearing loss, congestion Cardiovascular: Denies: chest pain, palpitations, dyspnea on exertion Respiratory: Denies: cough, dyspnea, wheezes Gastrointestinal: Denies: abdominal pain, nausea, vomiting, diarrhea, constipation Musculoskeletal: Denies: joint swelling, joint pain Neurological: Denies: headache, weakness, numbness, memory loss Psychiatric: Reports: difficulty concentrating, mood swings, panic attacks Objective: Exam Patient orientation: Yes Person, Yes Time, Yes Place Level of alertness: Alert Patient appearance: Appropriate, Well Groomed Behavior: calm, cooperative Psychomotor activity: Normal Eye contact: Maintains Eye Contact Mood description: Euthymic/stable Affect description: congruent with mood, full range Speech pattern: Normal rate, Normal rhythm, Normal tone Speech volume: Normal Thought process: Goal Oriented Thought content: No Suicidal ideation, No Homicidal ideation, No Overt delusions Perceptual disturbances: No Auditory hallucinations, No Visual hallucinations Judgment: Limited Insight: Minimal Results - Vital Signs Vital Signs: Temp Pulse Resp BP Pulse Ox 96.3 F L 88 18 111/86 99 07/23/17 09:00 07/23/17 09:00 07/23/17 09:00 07/23/17 09:00 07/21/17 20:12 Assessment and Plan (1) Bipolar disorder, current episode manic severe with psychotic features Current visit: Yes Status: Acute Plan: Continue hospitalization, Close observation, Suicide Precautions per unit protocol, Encourage participation in unit milieu, Group Therapy, Monitor sleep, Monitor appetite Risks, benefits, side effects, alternatives discussed w/pt: Yes Patient agreeable to treatment: Yes (2) Non compliance w medication regimen Current visit: Yes Status: Acute Plan: Continue hospitalization, Close observation, Suicide Precautions per unit protocol, Encourage participation in unit milieu, Group Therapy, Monitor sleep, Monitor appetite Risks, benefits, side effects, alternatives discussed w/pt: Yes Patient agreeable to treatment: Yes Consult Discharge Plan - Plan Additional Instructions: Dr. Villagran, psychiatrist, recommending initiation of Invega Sustenna 156mg as an outpatient to assist with medication compliance and improved stability. Referrals: [facility] [Outside] - 07/31/17 2:00 pm (The above appointment is with [facility] for outpatient counseling services. You will also see Dr. Chavez for psychiatric assessment and medication management services on 2017 at 7:00 PM.)
[2017-07-23] MEDS: clonazePAM 0.5 MG TABLET PO PRN ×2 (12:32→19:03)
[2017-07-23] MEDS: hydrOXYzine pamoate 25 MG CAPSULE PO PRN (21:13)
[2017-07-24] MEDS: Divalproex (12 HR) 500 MG TABLET PO SCH (01:19)
[2017-07-24] MEDS: Nicotine 2 MG GUM BC PRN ×3 (04:50→11:14)
[2017-07-24] MEDS: Saline Nasal Spray 44 ML BOTTLE NS PRN (05:11)
[2017-07-24] MEDS: hydrOXYzine pamoate 25 MG CAPSULE PO PRN (05:11)
[2017-07-24] MEDS: Lisinopril 20 MG TABLET PO SCH (08:47)
[2017-07-24 09:53] VITALS: BP 140/94
--- NOTE | 2017-07-24 10:40 | Discharge Summary ---
Date of Encounter: 07/24/17 Time of Encounter: 10:35 Diagnosis - Discharge Diagnosis (1) Bipolar disorder, current episode manic severe with psychotic features Status: Acute (2) Non compliance w medication regimen Status: Acute Medications - Discharge Medications Prescriptions: Divalproex (12 HR) [Depakote (12 HR)] 2,000 mg PO HS #240 tablet. Paliperidone [Invega] 6 mg PO DAILY #30 tab.er.24 Dicyclomine [Bentyl] 20 mg PO QID 07/19/17 [History] Lisinopril [Zestril] 20 mg PO DAILY 07/19/17 [History] Meloxicam [Mobic] 15 mg PO DAILY 07/19/17 [History] Simvastatin [Zocor] 20 mg PO HS 07/19/17 [History] Divalproex (12 HR) [Depakote (12 HR)] 2,000 mg PO HS #240 tablet. 07/24/17 [Rx ] Paliperidone [Invega] 6 mg PO DAILY #30 tab.er.24 07/24/17 [Rx] 3 Allergy/AdvReac Type Severity Reaction Status Date / Time haloperidol [From Haldol] AdvReac Swelling Verified 07/19/17 09:04 of Lip/Tongue/Throat lurasidone [From Latuda] AdvReac Swelling Verified 07/19/17 09:04 of Lip/Tongue/Throat Oxycodone [From Percocet] AdvReac Insomnia Verified 07/19/17 09:04 ziprasidone [From Geodon] AdvReac Swelling Verified 07/19/17 09:04 of Lip/Tongue/Throat Provider Date of admission: 07/19/17 12:03 Primary care physician: PCP NONE Discharging clinician: Emily Waller Assessment and Plan - Patient/Caregiver Discharge Instructions Activity: resume usual activities as tolerated Diet: regular diet Additional Instructions: Dr. Villagran, psychiatrist, recommending initiation of Invega Sustenna 156mg as an outpatient to assist with medication compliance and improved stability. - Follow up Plan Follow up with: [facility]Outside] - 07/31/17 2:00 pm (The above appointment is with [facility] for outpatient counseling services. You will also see Dr. Chavez for psychiatric assessment and medication management services on 2017 at 7:00 PM.) Functional capacity at discharge: independent ambulation Overall status at discharge: Stable Disposition: Home, Self-Care Hospital Course Hospital course: Mr. Banks is a 42 year old male who was admitted in a manic and psychotic state. He stabilized on a combination of Depakote and Invega. Discussed Sustenna with client and he was agreeable. Plan for long acting injection passed on to his outpatient provider. Client has support from his mother. He is linked with outpatient services and mental health appointments were scheduled for him prior to discharge. Client will also have home delivery of his medications as his compliance in the past has been poor. His mother will be giving him his medications tonight and tomorrow [facility] will start daily home delivery. Client denies SI/HI/AH/VH. Has some congregation preoccupation at baseline but otherwise seems stable. Mother helped clean his house and staff received verification that his home environment is safe. - Time Spent with Patient Total time spent providing and/or coordinating discharge services: Quality - Multiple Antipsychotics Patient discharged on 2 or more antipsychotic medications: No Procedures - Procedures Procedures: Medication Management, Crisis Stabilization, Supportive Therapy, Group Therapy Mental Status Exam - Mental Status Exam Patient orientation: Yes Person, Yes Time, Yes Place Level of alertness: Alert Patient appearance: Appropriate Behavior: calm, cooperative Psychomotor activity: Normal Eye contact: Maintains Eye Contact Mood description: Euthymic/stable Affect description: congruent with mood Speech pattern: Normal rate, Normal rhythm, Normal tone Speech Volume: Normal Thought process: Linear, Goal Oriented Thought Content: No Suicidal ideation, No Homicidal ideation, No Overt delusions Perceptual Disturbances: No Auditory hallucinations, No Visual hallucinations Judgment: Limited Insight: Partial
[2017-07-24] MEDS: clonazePAM 0.5 MG TABLET PO PRN (11:14)
[2017-07-24] MEDS ORDERED: Divalproex (12 HR) 250 MG TABLET PO SCH (21:00)
== END 2017-07-24 11:28 | disposition home or self-care (01) | DRG 753 ==
LOC: EMEROO 09:01 → 1ANU 12:03
PROVIDERS: ADMIT Psychiatry & Neurology Forensic Psychiatry; ATTEND Psychiatry & Neurology Forensic Psychiatry

== ENCOUNTER 2019-10-09 21:13 | Observation (INO) ==
[2019-10-09 21:37] LABS: Basophils # 0.1 K/mcL (0.0-0.2); Basophils % 1.1 %; Eosinophils # 0.1 K/mcL (0.0-0.6); Eosinophils % 0.9 %; Hematocrit 46.8 % (37.5-50.1); Hemoglobin 16.1 g/dL (12.9-16.9); Immature Granulocytes % 2.1 % (0-4); Lymphocytes # 2.1 K/mcL (0.6-4.6); Lymphocytes % 28.2 %; Mean Corpuscular HGB Conc 34.4 g/dL (31.6-35.5); Mean Corpuscular Hemoglobin 31.7 pg (28.0-33.3); Mean Corpuscular Volume 92.1 fL (83.0-100.0); Mean Platelet Volume 9.4 fL (9.4-12.4); Monocytes # 0.5 K/mcL (0.0-1.3); Neutrophils # 4.6 K/mcL (1.6-8.9); Platelet Count 298 K/mcL (140-400); Red Blood Count 5.08 M/mcL (4.19-5.50); Red Cell Distribution Width 14.9 % (11.5-14.5); Segmented Neutrophils % 60.7 %; White Blood Count 7.6 K/mcL (4.3-11.1)
[2019-10-09 21:54] LABS: Bilirubin,Urine Negative (Negative); Blood,Urine Negative (Negative); Clarity,Urine Clear (Clear); Color,Urine Yellow (Yellow); Glucose,Urine (UA) Normal (Normal); Ketones,Urine Negative (Negative); Leukocyte Esterase,Urine Negative (Negative); Nitrite,Urine Negative (Negative); PH,Urine 6.5 pH Units (5.0-8.0); Protein,Urine Negative (Neg-Trace); Specific Gravity,Urine 1.013 (1.010-1.025); Urobilinogen,Urine Normal (Normal)
[2019-10-09 21:58] LABS: Acetaminophen < 10 mcg/mL (10-20); BUN/Creatinine Ratio 8 (6-26); Blood Urea Nitrogen 9 mg/dL (6-20); Calcium 9.3 mg/dL (8.6-10.3); Carbon Dioxide 26 mEq/L (23-29); Chloride 101 mEq/L (98-107); Ethanol 113 mg/dL (Less than 10); Glucose 165 mg/dL (70-105); Osmolality,Calculated 282 (280-300); Potassium 3.9 mEq/L (3.5-5.1); Salicylate < 2.5 mg/dL (15.0-30.0); Sodium 135 mEq/L (136-145); Valproate 81 mcg/mL (50-100); eGFR For African Americans > 60 (> 60); eGFR For Non-African Americans > 60 (> 60)
[2019-10-09] MEDS ORDERED: *HR* LORazepam 1 MG TABLET PO ONE (22:10)
[2019-10-09 22:11] LABS: Amphetamine Screen,Urine Negative ng/mL (Cutoff=1000); Barbiturate Screen,Urine Negative ng/mL (Cutoff=200); Benzodiazepines Screen,Urine Negative ng/mL (Cutoff=200); Cannabinoid Screen,Urine Positive ng/mL (Cutoff = 50); Cocaine Screen,Urine Negative ng/mL (Cutoff= 300); Opiate Screen,Urine Negative ng/mL (Cutoff=300); Phencyclidine Screen,Urine Negative ng/mL (Cutoff=25)
[2019-10-09] MEDS ORDERED: 0.9 % Sodium Chloride 1,000 ML IVC ONE (22:22)
[2019-10-09] MEDS ORDERED: *HR* LORazepam 2 MG/ML VIAL IVP ONE (22:29)
[2019-10-09] MEDS ORDERED: *HR* LORazepam 2 MG/ML VIAL IVP PRN ×2 (22:30)
[2019-10-09] MEDS ORDERED: Thiamine (B-1) 100 MG, Folic Acid 1 MG, MVI, adult with vitamin K 10 ML in 0.9 % Sodi... IVPB ONE (22:32)
[2019-10-10] MEDS ORDERED: *HR* Dextrose 50 % in Water (Syg) 50 ML SYRINGE IVP PRN (05:27)
[2019-10-10] MEDS ORDERED: D5% in Water 1,000 ML IVC PRN (05:27)
[2019-10-10] MEDS ORDERED: Dextrose Gel 15 GM/37.5 ML TUBE PO PRN ×2 (05:27)
[2019-10-10] MEDS: Insulin LISPRO 300 UNITS/3 ML VIAL SQ SCH ×3 (08:27→17:33)
[2019-10-10] MEDS: lisinopriL 20 MG TABLET PO SCH (10:06)
[2019-10-10] MEDS ORDERED: Artificial Tears SOLN 15 ML BOTTLE BOTH EYES PRN (10:27)
[2019-10-10] MEDS: Fluticasone Propionate Nasal 50 MCG/SPRAY BOTTLE NS SCH (11:33)
[2019-10-10] MEDS: Nicotine 2 MG GUM BC PRN ×5 (11:57→23:31)
[2019-10-10] MEDS: Ketorolac 15 MG/ML VIAL IVP PRN ×2 (11:58→20:23)
[2019-10-10] MEDS: *HR* Heparin 5,000 UNIT/ML VIAL SQ SCH (17:38)
[2019-10-10] MEDS: *HR* LORazepam 2 MG/ML VIAL IVP PRN (20:23)
[2019-10-10] MEDS ORDERED: Insulin LISPRO 300 UNITS/3 ML VIAL SQ SCH (21:00)
[2019-10-10] MEDS ORDERED: Insulin DETEMIR 100 UNIT/ML X5UNITS SQ SCH (21:00)
[2019-10-11] MEDS: Ketorolac 15 MG/ML VIAL IVP PRN (02:04)
[2019-10-11] MEDS ORDERED: traZODone 50 MG TABLET PO PRN (02:19)
[2019-10-11] MEDS: *HR* LORazepam 2 MG/ML VIAL IVP PRN (02:31)
[2019-10-11] MEDS: *HR* Heparin 5,000 UNIT/ML VIAL SQ SCH (06:10)
[2019-10-11 07:21] VITALS: BP 132/82
[2019-10-11] MEDS: Insulin LISPRO 300 UNITS/3 ML VIAL SQ SCH ×2 (08:12→11:26)
[2019-10-11] MEDS: Nicotine 2 MG GUM BC PRN ×3 (08:13→12:52)
[2019-10-11] MEDS: lisinopriL 20 MG TABLET PO SCH (08:13)
[2019-10-11] MEDS: Fluticasone Propionate Nasal 50 MCG/SPRAY BOTTLE NS SCH (08:17)
[2019-10-11] MEDS ORDERED: clonazePAM 0.5 MG TABLET PO SCH (11:15)
== END 2019-10-11 12:52 ==
LOC: EMEROOARM 21:13 → 3BNU 21:13 → SUATTDRO 23:45 → 3BNU 10-10 00:41
PROVIDERS: ADMIT Internal Medicine; ATTEND Internal Medicine

== ENCOUNTER 2019-10-11 11:58 | Observation (INO) ==
[2019-10-11] MEDS ORDERED: *HR* LORazepam 1 MG TABLET PO PRN (13:12)
[2019-10-11] MEDS ORDERED: traZODone 50 MG TABLET PO PRN ×2 (13:12→13:42)
[2019-10-11] MEDS ORDERED: hydrOXYzine pamoate 25 MG CAPSULE PO PRN (13:12)
[2019-10-11] MEDS ORDERED: Mag Hydrox/Al Hydrox/Simeth 30 ML UDC PO PRN (13:12)
[2019-10-11] MEDS ORDERED: QUEtiapine Fumarate 25 MG TABLET PO PRN (13:12)
[2019-10-11] MEDS ORDERED: *HR* LORazepam 2 MG/ML VIAL IM PRN (13:12)
[2019-10-11] MEDS ORDERED: MOM Conc 10 ML UD.LIQ PO PRN (13:12)
[2019-10-11] MEDS ORDERED: Acetaminophen 325 MG TABLET PO PRN (13:12)
[2019-10-11] MEDS ORDERED: FluPHENAZine Decanoate 25 MG/ML MLS IM PRN (13:21)
[2019-10-11] MEDS ORDERED: Dextrose Gel 15 GM/37.5 ML TUBE PO PRN ×2 (13:46)
[2019-10-11] MEDS: Nicotine 2 MG GUM BC PRN ×2 (15:00→18:14)
[2019-10-11] MEDS: Insulin LISPRO 300 UNITS/3 ML VIAL SQ SCH (16:41)
[2019-10-11] MEDS ORDERED: Ibuprofen 400 MG TABLET PO PRN (17:48)
[2019-10-11] MEDS ORDERED: Divalproex (24 HR) 500 MG TABLET PO SCH (21:00)
[2019-10-11] MEDS ORDERED: Insulin LISPRO 300 UNITS/3 ML VIAL SQ SCH (21:00)
[2019-10-11] MEDS ORDERED: Insulin DETEMIR 100 UNIT/ML X5UNITS SQ SCH (21:00)
[2019-10-12] MEDS: clonazePAM 0.5 MG TABLET PO PRN ×2 (00:58→08:28)
[2019-10-12] MEDS: Nicotine 2 MG GUM BC PRN ×2 (00:58→07:51)
[2019-10-12 08:49] LABS: Albumin 4.4 g/dL (3.5-5.7); Albumin/Globulin Ratio 1.6 (1.1-2.2); Bilirubin,Direct 0.1 mg/dL (0.0-0.2); Bilirubin,Indirect 0.3 mg/dL (0.0-1.0); Bilirubin,Total 0.4 mg/dL (0.3-1.0); Globulin 2.8 g/dL (2.4-3.5); Total Protein 7.2 g/dL (6.4-8.9)
[2019-10-12] MEDS ORDERED: lisinopriL 20 MG TABLET PO SCH (09:00)
[2019-10-12 09:14] VITALS: BP 127/82
[2019-10-12] MEDS: Insulin LISPRO 300 UNITS/3 ML VIAL SQ SCH (09:38)
== END 2019-10-12 09:46 | disposition home or self-care (01) ==
LOC: INTOOBSV 11:58 → 1ANU 11:58
PROVIDERS: ADMIT Psychiatry & Neurology Psychiatry; ATTEND Psychiatry & Neurology Psychiatry

== ENCOUNTER 2021-05-07 14:23 | Observation (INO) ==
[2021-05-07] MEDS ORDERED: Folic Acid 1 MG in 0.9 % Sodium Chloride 50 ML IVPB ONE (14:52)
[2021-05-07] MEDS ORDERED: Thiamine (B-1) 200 MG in 0.9 % Sodium Chloride 50 ML IVPB ONE (14:52)
[2021-05-07] MEDS ORDERED: 0.9 % Sodium Chloride 1,000 ML IVC ONE (14:52)
[2021-05-07 15:42] LABS: Bilirubin,Urine Negative (Negative); Blood,Urine Negative (Negative); Clarity,Urine Clear (Clear); Color,Urine Light-Yellow (Yellow); Glucose,Urine (UA) >=1000 mg/dL (Normal); Hyaline Casts,Urine Few per lpf (None Seen); Ketones,Urine 10 mg/dL (Negative); Leukocyte Esterase,Urine Negative (Negative); Mucus,Urine Few per lpf (None-Few); Nitrite,Urine Negative (Negative); PH,Urine 5.5 pH Units (5.0-8.0); Protein,Urine 30 mg/dL (Neg-Trace); RBC,Urine 0-3 per hpf (0-3); Specific Gravity,Urine 1.019 (1.010-1.025); Urobilinogen,Urine Normal (Normal); WBC,Urine 0-3 per hpf (0-3)
[2021-05-07] MEDS ORDERED: Ketorolac 30 MG/ML VIAL IVP ONE (16:01)
[2021-05-07 16:05] LABS: Basophils # 0.1 K/mcL (0.0-0.2); Eosinophils # 0.1 K/mcL (0.0-0.6); Eosinophils % 0.9 %; Hematocrit 48.2 % (37.5-50.1); Hemoglobin 17.2 g/dL (12.9-16.9); Immature Granulocytes % 1.6 % (0-4); Lymphocytes # 2.5 K/mcL (0.6-4.6); Lymphocytes % 21.3 %; Mean Corpuscular HGB Conc 35.7 g/dL (31.6-35.5); Mean Corpuscular Hemoglobin 31.4 pg (28.0-33.3); Mean Platelet Volume 10.3 fL (9.4-12.4); Monocytes # 0.9 K/mcL (0.0-1.3); Monocytes % 7.4 %; Neutrophils # 7.9 K/mcL (1.6-8.9); Platelet Count 268 K/mcL (140-400); Red Blood Count 5.48 M/mcL (4.19-5.50); Red Cell Distribution Width 13.1 % (11.5-14.5); Segmented Neutrophils % 67.8 %; White Blood Count 11.6 K/mcL (4.3-11.1)
[2021-05-07] MEDS ORDERED: *HR* LORazepam 2 MG/ML VIAL IVP ONE ×3 (16:20→19:31)
[2021-05-07 18:03] LABS: BUN/Creatinine Ratio 12 (6-26); Blood Urea Nitrogen 15 mg/dL (6-20); Calcium 9.7 mg/dL (8.6-10.3); Carbon Dioxide 18 mEq/L (23-29); Chloride 98 mEq/L (98-107); Glucose 334 mg/dL (70-105); Lipase 89 Units/L (11-82); Magnesium 1.7 mg/dL (1.6-2.6); Osmolality,Calculated 290 (280-300); Potassium 3.9 mEq/L (3.5-5.1); Sodium 133 mEq/L (136-145); Troponin I < 0.03 ng/mL (< 0.04); eGFR For African Americans > 60 (> 60); eGFR For Non-African Americans > 60 (> 60)
[2021-05-07] MEDS ORDERED: Insulin Human Regular 5 UNIT in 0.9 % Sodium Chloride 10 ML IV ONE (18:10)
[2021-05-07 19:28] LABS: VBG HCO3 23 mEq/L (21-27); VBG PCO2 32 mmHg (41-51); VBG PH 7.46 pH Units (7.32-7.42); VBG PO2 126 mmHg (25-50)
[2021-05-07 20:04] LABS: Amphetamine Screen,Urine Negative ng/mL (Cutoff=1000); Barbiturate Screen,Urine Negative ng/mL (Cutoff=200); Benzodiazepines Screen,Urine Negative ng/mL (Cutoff=200); Cannabinoid Screen,Urine Positive ng/mL (Cutoff = 50); Cocaine Screen,Urine Negative ng/mL (Cutoff= 300); Opiate Screen,Urine Negative ng/mL (Cutoff=300); Phencyclidine Screen,Urine Negative ng/mL (Cutoff=25)
[2021-05-07] MEDS ORDERED: *HR* LORazepam 2 MG/ML VIAL IVP PRN ×3 (20:23)
[2021-05-07] MEDS ORDERED: Dextrose Gel 15 GM/37.5 ML TUBE PO PRN ×2 (20:24)
[2021-05-07] MEDS ORDERED: *HR* Dextrose 50 % in Water (Syg) 50 ML SYRINGE IVP PRN (20:24)
[2021-05-07] MEDS ORDERED: D5% in Water 1,000 ML IVC PRN (20:24)
[2021-05-07] MEDS: 0.9 % Sodium Chloride 1,000 ML IVC SCH (21:40)
[2021-05-07] MEDS: Insulin DETEMIR 100 UNIT/ML X5UNITS SUBQ SCH (22:22)
[2021-05-07] MEDS: Insulin LISPRO 300 UNITS/3 ML VIAL SUBQ SCH (22:23)
[2021-05-08] MEDS: Insulin LISPRO 300 UNITS/3 ML VIAL SUBQ SCH ×6 (00:59→19:42)
[2021-05-08] MEDS: 0.9 % Sodium Chloride 1,000 ML IVC SCH (04:23)
[2021-05-08 13:02] LABS: Estimated Average Glucose 217 mg/dl; Hemoglobin A1C 9.2 %
[2021-05-08] MEDS ORDERED: Divalproex (12 HR) 500 MG TABLET PO SCH (17:15)
[2021-05-08] MEDS: Thiamine (B-1) 100 MG, Folic Acid 1 MG, MVI, adult with vitamin K 10 ML in 0.9 % Sodi... IVPB SCH (17:28)
[2021-05-08] MEDS ORDERED: Divalproex (12 HR) 500 MG TABLET PO ONE (17:30)
[2021-05-08] MEDS: Insulin DETEMIR 100 UNIT/ML X5UNITS SUBQ SCH (19:43)
[2021-05-08] MEDS ORDERED: Insulin LISPRO 300 UNITS/3 ML VIAL SUBQ SCH (22:00)
[2021-05-09] MEDS: Insulin LISPRO 300 UNITS/3 ML VIAL SUBQ SCH ×5 (00:19→17:01)
[2021-05-09] MEDS: lisinopriL 20 MG TABLET PO SCH (07:43)
[2021-05-09] MEDS: Divalproex (12 HR) 500 MG TABLET PO SCH (10:20)
[2021-05-09] MEDS: Nicotine 2 MG GUM BC PRN ×3 (11:48→17:01)
[2021-05-09] MEDS ORDERED: Acetaminophen 325 MG TABLET PO PRN (14:28)
[2021-05-09] MEDS: Thiamine (B-1) 100 MG, Folic Acid 1 MG, MVI, adult with vitamin K 10 ML in 0.9 % Sodi... IVPB SCH (17:01)
[2021-05-09] MEDS: Insulin DETEMIR 100 UNIT/ML X5UNITS SUBQ SCH (19:35)
[2021-05-09] MEDS ORDERED: Insulin LISPRO 300 UNITS/3 ML VIAL SUBQ SCH (21:00)
[2021-05-10 04:32] VITALS: O2SAT 99
[2021-05-10 06:17] LABS: Hematocrit 47.2 % (37.5-50.1); Hemoglobin 16.5 g/dL (12.9-16.9); Mean Corpuscular Hemoglobin 31.8 pg (28.0-33.3); Mean Corpuscular Volume 90.9 fL (83.0-100.0); Mean Platelet Volume 10.4 fL (9.4-12.4); Platelet Count 234 K/mcL (140-400); Red Blood Count 5.19 M/mcL (4.19-5.50); Red Cell Distribution Width 13.2 % (11.5-14.5)
[2021-05-10 06:51] LABS: Alanine Aminotransferase 53 Units/L (7-52); Albumin 4.4 g/dL (3.5-5.7); Albumin/Globulin Ratio 1.5 (1.1-2.2); Alkaline Phosphatase 61 Units/L (34-104); Aspartate Amino Transferase 25 Units/L (13-39); BUN/Creatinine Ratio 14 (6-26); Bilirubin,Total 0.6 mg/dL (0.3-1.0); Blood Urea Nitrogen 14 mg/dL (6-20); Calcium 9.5 mg/dL (8.6-10.3); Carbon Dioxide 24 mEq/L (23-29); Chloride 102 mEq/L (98-107); Globulin 2.9 g/dL (2.4-3.5); Glucose 247 mg/dL (70-105); Magnesium 1.9 mg/dL (1.6-2.6); Osmolality,Calculated 289 (280-300); Phosphorous 3.1 mg/dL (2.7-4.5); Potassium 3.9 mEq/L (3.5-5.1); Sodium 135 mEq/L (136-145); Total Protein 7.3 g/dL (6.4-8.9); eGFR For African Americans > 60 (> 60); eGFR For Non-African Americans > 60 (> 60)
[2021-05-10 07:23] VITALS: BP 137/96; PULSE 102; TEMP 97.8
[2021-05-10] MEDS: lisinopriL 20 MG TABLET PO SCH (08:03)
[2021-05-10] MEDS: Divalproex (12 HR) 500 MG TABLET PO SCH (08:03)
[2021-05-10] MEDS: Insulin LISPRO 300 UNITS/3 ML VIAL SUBQ SCH (08:04)
== END 2021-05-10 12:06 | disposition home or self-care (01) ==
LOC: EMEROOARM 14:23 → 2NENU 14:23 → SUATTDRO 20:11 → 2NENU 20:59
PROVIDERS: ADMIT Internal Medicine; ATTEND Family Medicine

== ENCOUNTER 2021-06-06 22:22 | Inpatient (IN) ==
[2021-06-07 02:53] LABS: Bilirubin,Urine Negative (Negative); Blood,Urine Negative (Negative); Clarity,Urine Clear (Clear); Color,Urine Light-Yellow (Yellow); Glucose,Urine (UA) 100 mg/dL (Normal); Ketones,Urine Trace mg/dL (Negative); Leukocyte Esterase,Urine Negative (Negative); Nitrite,Urine Negative (Negative); PH,Urine 5.5 pH Units (5.0-8.0); Protein,Urine Negative (Neg-Trace); RBC,Urine 0-3 per hpf (0-3); Specific Gravity,Urine 1.012 (1.010-1.025); Urobilinogen,Urine Normal (Normal); WBC,Urine 0-3 per hpf (0-3)
[2021-06-07 03:03] LABS: Basophils # 0.1 K/mcL (0.0-0.2); Basophils % 1.2 %; Eosinophils # 0.2 K/mcL (0.0-0.6); Eosinophils % 2.1 %; Hematocrit 47.2 % (37.5-50.1); Lymphocytes # 3.4 K/mcL (0.6-4.6); Mean Corpuscular HGB Conc 33.9 g/dL (31.6-35.5); Mean Corpuscular Hemoglobin 31.1 pg (28.0-33.3); Mean Corpuscular Volume 91.8 fL (83.0-100.0); Mean Platelet Volume 10.4 fL (9.4-12.4); Monocytes # 0.9 K/mcL (0.0-1.3); Monocytes % 8.5 %; Neutrophils # 5.3 K/mcL (1.6-8.9); Platelet Count 267 K/mcL (140-400); Red Blood Count 5.14 M/mcL (4.19-5.50); Red Cell Distribution Width 12.2 % (11.5-14.5); Segmented Neutrophils % 53.2 %
[2021-06-07 03:04] LABS: Amphetamine Screen,Urine Negative ng/mL (Cutoff=1000); Barbiturate Screen,Urine Negative ng/mL (Cutoff=200); Benzodiazepines Screen,Urine Negative ng/mL (Cutoff=200); Cannabinoid Screen,Urine Negative ng/mL (Cutoff = 50); Cocaine Screen,Urine Negative ng/mL (Cutoff= 300); Opiate Screen,Urine Negative ng/mL (Cutoff=300); Phencyclidine Screen,Urine Negative ng/mL (Cutoff=25)
[2021-06-07 03:17] LABS: Acetaminophen < 10 mcg/mL (10-20); BUN/Creatinine Ratio 8 (6-26); Blood Urea Nitrogen 8 mg/dL (6-20); Calcium 9.7 mg/dL (8.6-10.3); Carbon Dioxide 24 mEq/L (23-29); Chloride 102 mEq/L (98-107); Ethanol 104 mg/dL (Less than 10); Glucose 182 mg/dL (70-105); Osmolality,Calculated 281 (280-300); Potassium 3.9 mEq/L (3.5-5.1); Salicylate < 2.5 mg/dL (15.0-30.0); Sodium 134 mEq/L (136-145); eGFR For African Americans > 60 (> 60); eGFR For Non-African Americans > 60 (> 60)
[2021-06-07] MEDS ORDERED: Nicotine 14 MG PATCH.TD24 TD STA (03:45)
[2021-06-07 07:58] LABS: Influenza A PCR Negative (Negative); Influenza B PCR Negative (Negative); Resp. Syncytial Virus PCR Negative (Negative)
[2021-06-07 08:01] LABS: SARS-CoV-2 by PCR (In House) Negative (Negative)
[2021-06-07] MEDS ORDERED: MOM Conc 10 ML UD.LIQ PO PRN (09:42)
[2021-06-07] MEDS ORDERED: Mag Hydrox/Al Hydrox/Simeth 30 ML UDC PO PRN (09:42)
[2021-06-07] MEDS ORDERED: *HR* LORazepam 1 MG TABLET PO PRN (09:42)
[2021-06-07] MEDS ORDERED: *HR* LORazepam 2 MG/ML VIAL IM PRN (09:42)
[2021-06-07] MEDS ORDERED: Haloperidol Lactate 5 MG/ML VIAL IM PRN (09:42)
[2021-06-07] MEDS ORDERED: haloperidoL 5 MG TABLET PO PRN (09:42)
[2021-06-07] MEDS ORDERED: traZODone 50 MG TABLET PO PRN (09:42)
[2021-06-07] MEDS: Divalproex (12 HR) 500 MG TABLET PO SCH ×2 (10:20→20:34)
[2021-06-07] MEDS: lisinopriL 20 MG TABLET PO SCH (10:20)
[2021-06-07] MEDS: Nicotine 2 MG GUM BC PRN ×5 (10:21→23:26)
[2021-06-07] MEDS: hydrOXYzine pamoate 25 MG CAPSULE PO PRN (10:21)
[2021-06-07] MEDS: *HR* Glimepiride 4 MG TABLET PO SCH (13:32)
[2021-06-07] MEDS: *HR* Metformin 500 MG TABLET PO SCH (16:09)
[2021-06-07] MEDS: risperiDONE 1 MG TABLET PO SCH (20:54)
[2021-06-08] MEDS: *HR* Metformin 500 MG TABLET PO SCH ×2 (08:59→16:51)
[2021-06-08] MEDS: Divalproex (12 HR) 500 MG TABLET PO SCH ×2 (09:00→20:55)
[2021-06-08] MEDS: risperiDONE 1 MG TABLET PO SCH (09:00)
[2021-06-08] MEDS: lisinopriL 20 MG TABLET PO SCH (09:00)
[2021-06-08] MEDS: Nicotine 2 MG GUM BC PRN ×3 (09:33→21:13)
[2021-06-08] MEDS: *HR* Glimepiride 4 MG TABLET PO SCH (09:46)
[2021-06-08] MEDS: OLANZapine 10 MG TAB.RAPDIS PO SCH ×2 (11:02→21:06)
[2021-06-08] MEDS: hydrOXYzine pamoate 25 MG CAPSULE PO PRN (17:20)
[2021-06-09] MEDS: Nicotine 2 MG GUM BC PRN ×3 (06:56→12:42)
[2021-06-09] MEDS: *HR* Metformin 500 MG TABLET PO SCH (09:01)
[2021-06-09] MEDS: Divalproex (12 HR) 500 MG TABLET PO SCH (09:01)
[2021-06-09] MEDS: *HR* Glimepiride 4 MG TABLET PO SCH (09:01)
[2021-06-09] MEDS: lisinopriL 20 MG TABLET PO SCH (09:01)
[2021-06-09 09:51] VITALS: BP 128/83; PULSE 93; TEMP 97.6; O2SAT 100
[2021-06-09] MEDS: hydrOXYzine pamoate 25 MG CAPSULE PO PRN (10:14)
== END 2021-06-09 14:00 | disposition home or self-care (01) | DRG 753 ==
LOC: EMEROOARM 22:22 → 1ANU 06-07 08:41
PROVIDERS: ADMIT Psychiatry & Neurology Psychiatry; ATTEND Psychiatry & Neurology Psychiatry

== ENCOUNTER 2021-07-03 18:07 | Observation (INO) ==
[2021-07-03 18:58] LABS: Basophils # 0.1 K/mcL (0.0-0.2); Basophils % 0.7 %; Eosinophils # 0.1 K/mcL (0.0-0.6); Eosinophils % 0.7 %; Hematocrit 43.3 % (37.5-50.1); Hemoglobin 15.2 g/dL (12.9-16.9); Immature Granulocytes % 1.9 % (0-4); Lymphocytes % 22.1 %; Mean Corpuscular HGB Conc 35.1 g/dL (31.6-35.5); Mean Corpuscular Hemoglobin 31.5 pg (28.0-33.3); Mean Corpuscular Volume 89.6 fL (83.0-100.0); Mean Platelet Volume 9.6 fL (9.4-12.4); Monocytes # 0.8 K/mcL (0.0-1.3); Monocytes % 8.6 %; Neutrophils # 5.9 K/mcL (1.6-8.9); Platelet Count 411 K/mcL (140-400); Red Blood Count 4.83 M/mcL (4.19-5.50); Red Cell Distribution Width 12.7 % (11.5-14.5)
[2021-07-03 19:17] LABS: Acetaminophen < 10 mcg/mL (10-20); Alanine Aminotransferase 32 Units/L (7-52); Albumin 4.5 g/dL (3.5-5.7); Albumin/Globulin Ratio 1.3 (1.1-2.2); Alkaline Phosphatase 62 Units/L (34-104); Aspartate Amino Transferase 24 Units/L (13-39); BUN/Creatinine Ratio 10 (6-26); Bilirubin,Direct 0.1 mg/dL (0.0-0.2); Bilirubin,Indirect 0.4 mg/dL (0.0-1.0); Bilirubin,Total 0.5 mg/dL (0.3-1.0); Blood Urea Nitrogen 10 mg/dL (6-20); Calcium 9.5 mg/dL (8.6-10.3); Carbon Dioxide 26 mEq/L (23-29); Chloride 94 mEq/L (98-107); Chol/HDL Ratio 3.4 (0-4.9); Cholesterol 149 mg/dL (< 200); Ethanol < 10 mg/dL (Less than 10); Globulin 3.6 g/dL (2.4-3.5); Glucose 208 mg/dL (70-105); HDL Cholesterol 44 mg/dL (40-59); LDL Cholesterol,Calculated 73 mg/dL (< 100); Osmolality,Calculated 273 (280-300); Potassium 3.7 mEq/L (3.5-5.1); Salicylate < 2.5 mg/dL (15.0-30.0); Sodium 129 mEq/L (136-145); Total Protein 8.1 g/dL (6.4-8.9); Triglycerides 162 mg/dL (< 150); eGFR For African Americans > 60 (> 60); eGFR For Non-African Americans > 60 (> 60)
[2021-07-03 19:19] LABS: Amorphous Sediment,Urine Few per hpf (None-Few); Bacteria,Urine Few per hpf (None-Few); Bilirubin,Urine Negative (Negative); Blood,Urine Negative (Negative); Calcium Oxalate Crystals,Urine Present per hpf; Clarity,Urine Clear (Clear); Color,Urine Light-Yellow (Yellow); Glucose,Urine (UA) 500 mg/dL (Normal); Ketones,Urine Negative (Negative); Leukocyte Esterase,Urine Negative (Negative); Mucus,Urine Few per lpf (None-Few); Nitrite,Urine Negative (Negative); Protein,Urine Negative (Neg-Trace); RBC,Urine 0-3 per hpf (0-3); Specific Gravity,Urine 1.007 (1.010-1.025); Squamous Epithelial Cell,Urine Few per hpf (None-Few); WBC,Urine 0-3 per hpf (0-3)
[2021-07-03 19:27] LABS: Amphetamine Screen,Urine Negative ng/mL (Cutoff=1000); Barbiturate Screen,Urine Negative ng/mL (Cutoff=200); Benzodiazepines Screen,Urine Negative ng/mL (Cutoff=200); Cannabinoid Screen,Urine Positive ng/mL (Cutoff = 50); Cocaine Screen,Urine Negative ng/mL (Cutoff= 300); Opiate Screen,Urine Negative ng/mL (Cutoff=300); Phencyclidine Screen,Urine Negative ng/mL (Cutoff=25)
[2021-07-03] MEDS ORDERED: hydrALAZINE 25 MG TABLET PO ONE (19:59)
[2021-07-03 20:02] LABS: Estimated Average Glucose 200 mg/dl; Hemoglobin A1C 8.6 %
[2021-07-03] MEDS ORDERED: *HR* LORazepam 2 MG/ML VIAL IM ONE (21:56)
[2021-07-03] MEDS ORDERED: Haloperidol Lactate 5 MG/ML VIAL IM ONE (22:12)
[2021-07-03 23:04] LABS: Influenza A PCR Negative (Negative); Influenza B PCR Negative (Negative); Resp. Syncytial Virus PCR Negative (Negative)
[2021-07-03 23:19] LABS: SARS-CoV-2 by PCR (In House) Positive (Negative)
[2021-07-04] MEDS ORDERED: Naloxone 0.4 MG/ML INJ IVP PRN (05:09)
[2021-07-04] MEDS ORDERED: Melatonin 3 MG TABLET PO PRN (05:09)
[2021-07-04] MEDS ORDERED: *HR* Labetalol 20 MG/4 ML SYRINGE IVP ONE (05:13)
[2021-07-04] MEDS ORDERED: *HR* LORazepam 2 MG/ML VIAL IVP PRN ×2 (05:13)
[2021-07-04] MEDS ORDERED: *HR* LORazepam 2 MG/ML VIAL IM STA (05:46)
[2021-07-04] MEDS: *HR* Enoxaparin 40 MG/0.4 ML SYRINGE SQ SCH (09:41)
[2021-07-04] MEDS: Thiamine (B-1) 200 MG in 0.9 % Sodium Chloride 50 ML IVPB SCH (09:41)
[2021-07-04] MEDS: lisinopriL 20 MG TABLET PO SCH (09:41)
[2021-07-04] MEDS: Folic Acid 1 MG TABLET PO SCH (09:41)
[2021-07-04] MEDS: Divalproex (12 HR) 500 MG TABLET PO SCH (09:41)
[2021-07-04] MEDS ORDERED: Saline Nasal Spray 44 ML BOTTLE NS PRN (12:08)
[2021-07-04] MEDS: *HR* LORazepam 2 MG/ML VIAL IVP PRN ×2 (12:21→16:39)
[2021-07-04] MEDS: Nicotine 2 MG GUM BC PRN ×3 (12:36→20:13)
[2021-07-04] MEDS: OLANZapine 10 MG TAB.RAPDIS PO SCH (20:17)
[2021-07-05] MEDS ORDERED: Ketorolac 30 MG/ML VIAL IVP ONE (00:36)
[2021-07-05] MEDS: Nicotine 2 MG GUM BC PRN ×5 (00:50→22:08)
[2021-07-05] MEDS: *HR* Enoxaparin 40 MG/0.4 ML SYRINGE SQ SCH (03:59)
[2021-07-05 04:44] LABS: Basophils # 0.1 K/mcL (0.0-0.2); Basophils % 1.1 %; Eosinophils # 0.1 K/mcL (0.0-0.6); Eosinophils % 1.8 %; Immature Granulocytes % 2.3 % (0-4); Lymphocytes # 2.1 K/mcL (0.6-4.6); Lymphocytes % 26.8 %; Mean Corpuscular HGB Conc 34.4 g/dL (31.6-35.5); Mean Corpuscular Hemoglobin 30.9 pg (28.0-33.3); Mean Corpuscular Volume 89.9 fL (83.0-100.0); Mean Platelet Volume 9.9 fL (9.4-12.4); Monocytes # 0.8 K/mcL (0.0-1.3); Monocytes % 10.3 %; Neutrophils # 4.5 K/mcL (1.6-8.9); Platelet Count 312 K/mcL (140-400); Red Blood Count 4.34 M/mcL (4.19-5.50); Red Cell Distribution Width 12.5 % (11.5-14.5); Segmented Neutrophils % 57.7 %; White Blood Count 7.8 K/mcL (4.3-11.1)
[2021-07-05 04:45] LABS: Hemoglobin 13.4 g/dL (12.9-16.9)
[2021-07-05 05:04] LABS: Alanine Aminotransferase 23 Units/L (7-52); Albumin 3.6 g/dL (3.5-5.7); Albumin/Globulin Ratio 1.3 (1.1-2.2); Alkaline Phosphatase 58 Units/L (34-104); Aspartate Amino Transferase 18 Units/L (13-39); BUN/Creatinine Ratio 11 (6-26); Bilirubin,Total 0.5 mg/dL (0.3-1.0); Blood Urea Nitrogen 10 mg/dL (6-20); Calcium 8.3 mg/dL (8.6-10.3); Carbon Dioxide 25 mEq/L (23-29); Chloride 97 mEq/L (98-107); Globulin 2.7 g/dL (2.4-3.5); Glucose 253 mg/dL (70-105); Osmolality,Calculated 276 (280-300); Potassium 3.6 mEq/L (3.5-5.1); Sodium 129 mEq/L (136-145); Total Protein 6.3 g/dL (6.4-8.9); eGFR For African Americans > 60 (> 60); eGFR For Non-African Americans > 60 (> 60)
[2021-07-05] MEDS: lisinopriL 20 MG TABLET PO SCH (08:32)
[2021-07-05] MEDS: Divalproex (12 HR) 500 MG TABLET PO SCH (08:32)
[2021-07-05] MEDS: Folic Acid 1 MG TABLET PO SCH (08:32)
[2021-07-05] MEDS: Thiamine (B-1) 200 MG in 0.9 % Sodium Chloride 50 ML IVPB SCH (08:36)
[2021-07-05] MEDS: OLANZapine 10 MG TAB.RAPDIS PO SCH (22:08)
[2021-07-05] MEDS ORDERED: Dextrose Gel 15 GM/37.5 ML TUBE PO PRN ×2 (23:33)
[2021-07-05] MEDS ORDERED: *HR* Dextrose 50 % in Water (Syg) 50 ML SYRINGE IVP PRN (23:33)
[2021-07-05] MEDS ORDERED: D5% in Water 1,000 ML IVC PRN (23:33)
[2021-07-05] MEDS ORDERED: Insulin LISPRO 300 UNITS/3 ML VIAL SUBQ SCH (23:45)
[2021-07-06] MEDS: *HR* Enoxaparin 40 MG/0.4 ML SYRINGE SQ SCH (05:00)
[2021-07-06 06:37] LABS: Basophils # 0.1 K/mcL (0.0-0.2); Basophils % 1.2 %; Eosinophils # 0.2 K/mcL (0.0-0.6); Eosinophils % 2.7 %; Hemoglobin 14.7 g/dL (12.9-16.9); Immature Granulocytes % 2.8 % (0-4); Lymphocytes # 2.9 K/mcL (0.6-4.6); Lymphocytes % 35.5 %; Mean Corpuscular HGB Conc 34.2 g/dL (31.6-35.5); Mean Corpuscular Hemoglobin 31.6 pg (28.0-33.3); Mean Corpuscular Volume 92.5 fL (83.0-100.0); Mean Platelet Volume 9.8 fL (9.4-12.4); Monocytes # 0.7 K/mcL (0.0-1.3); Monocytes % 9.1 %; Platelet Count 324 K/mcL (140-400); Red Blood Count 4.65 M/mcL (4.19-5.50); Red Cell Distribution Width 12.8 % (11.5-14.5); Segmented Neutrophils % 48.7 %; White Blood Count 8.2 K/mcL (4.3-11.1)
[2021-07-06 07:02] LABS: Alanine Aminotransferase 23 Units/L (7-52); Albumin 3.7 g/dL (3.5-5.7); Albumin/Globulin Ratio 1.3 (1.1-2.2); Alkaline Phosphatase 60 Units/L (34-104); Aspartate Amino Transferase 16 Units/L (13-39); BUN/Creatinine Ratio 11 (6-26); Bilirubin,Total 0.4 mg/dL (0.3-1.0); Blood Urea Nitrogen 11 mg/dL (6-20); Carbon Dioxide 27 mEq/L (23-29); Chloride 102 mEq/L (98-107); Globulin 2.9 g/dL (2.4-3.5); Glucose 235 mg/dL (70-105); Osmolality,Calculated 287 (280-300); Potassium 4.1 mEq/L (3.5-5.1); Sodium 135 mEq/L (136-145); Total Protein 6.6 g/dL (6.4-8.9); eGFR For African Americans > 60 (> 60); eGFR For Non-African Americans > 60 (> 60)
[2021-07-06] MEDS: Folic Acid 1 MG TABLET PO SCH (08:17)
[2021-07-06] MEDS: Nicotine 2 MG GUM BC PRN ×3 (08:17→12:44)
[2021-07-06] MEDS: Divalproex (12 HR) 500 MG TABLET PO SCH (08:17)
[2021-07-06] MEDS: lisinopriL 20 MG TABLET PO SCH (08:17)
[2021-07-06] MEDS: Insulin LISPRO 300 UNITS/3 ML VIAL SUBQ SCH ×2 (08:18→12:50)
[2021-07-06] MEDS: Thiamine (B-1) 200 MG in 0.9 % Sodium Chloride 50 ML IVPB SCH (09:15)
[2021-07-06 12:02] VITALS: BP 164/78; PULSE 118; TEMP 98.1; O2SAT 96
== END 2021-07-06 14:55 | disposition home or self-care (01) ==
LOC: 3BNU 18:07 → EMEROOARM 18:07 → SUATTDRO 07-04 05:34 → 3BNU 07-04 06:30
PROVIDERS: ADMIT Internal Medicine; ATTEND Family Medicine